=== PATIENT | female | born 1960 | race Caucasian/White ===

== ENCOUNTER 2018-02-17 11:53 | Outpatient (RCR) | payer MEDICARE, SELFPAY ==
--- NOTE | 2018-02-17 16:25 | PT.OIE ---
Current Diagnoses Pain in left shoulder (02/17/18) Past Surgical History History of spinal fusion Physical Therapy Initial Evaluation PT-OP-A Visit Information Start: 02/17/18 10:44 Freq: Status: Active Protocol: Activity Type Activity Date Activity User E-Sign Co-Sign Detail Recorded Client Recorded Date Recorded By Document 02/17/18 12:15 [facility] [id number] 02/17/18 16:24 [facility] 02/17/18 12:15 Out-Patient Physical Therapy Visit Information [Visit Information] -Visit Type Initial Evaulation -Visit Start Time 12:15 -Visit Stop Time 13:00 -Total Visit Minutes 45 [Evaluation Information] -Evaluation Date 02/17/18 PT-OP-B Current Condition Start: 02/17/18 10:44 Freq: Status: Active Protocol: Activity Type Activity Date Activity User E-Sign Co-Sign Detail Recorded Client Recorded Date Recorded By Document 02/17/18 12:15 [place] [id number] 02/17/18 16:24 [facility] 02/17/18 12:15 Current Condition [History of Current Condition] -Prior Treatments and Tests 2 cervical surgeries & PT for neck -Future Testing and Treatments Planned Cervical sx planned for April 12, 2018 PT-OP-C Subjective Start: 02/17/18 10:44 Freq: Status: Active Protocol: Activity Type Activity Date Activity User E-Sign Co-Sign Detail Recorded Client Recorded Date Recorded By Document 02/17/18 12:15 [facility] [id number] 02/17/18 16:24 [facility] 02/17/18 12:15 OP-PT Subjective [Patient Comments] -Patient Comments Pt wants HEP for stretching shoulder region to perform at home. Patient Questionnaires [Quick Dash- Upper Extremity] -Quick Dash UE Score 36.36 -Quick Dash UE Impairment 20 to 39% Impaired (Score 20-39) OP-PT Pain Assessment [Pain Assessment Grid] -Paper Pain Assessment Grid Completed Yes [Location] Left Posterior Lateral Neck -Pain Location Details along UT mm -Intensity 6 -Scale Used Numeric (1 - 10 ) -Description Aching -Frequency Constant -Pain Aggravating Factors Lifting -Other Pain Aggravating Factors not doing exercises -Pain Alleviating Factors Cold Medication Exercise -Patient Stated Pain Goal Have own HEP for stretching PT-OP-J Posture/Palpation/Skin Start: 02/17/18 10:44 Freq: Status: Active Protocol: Activity Type Activity Date Activity User E-Sign Co-Sign Detail Recorded Client Recorded Date Recorded By Document 02/17/18 12:15 [facility] [id number] 02/17/18 16:24 [facility] 02/17/18 12:15 Palpation Assessment [Location] One -Palpation Location UT, LS & cervical paraspinals -Palpation Findings Soft Tissue Tightness Tenderness PT-OP-K Range of Motion Start: 02/17/18 10:44 Freq: Status: Active Protocol: Activity Type Activity Date Activity User E-Sign Co-Sign Detail Recorded Client Recorded Date Recorded By Document 02/17/18 11:22 [facility] [id number] 02/17/18 12:55 [facility] 02/17/18 11:22 Shoulder Goniometric Range of Motion [Shoulder] Measured in Degrees Right Active -Shoulder ROM WFL Yes -Testing Position Sitting Left Active -Testing Position Sitting -Flexion 152 -Extension 70 -Abduction 160 -External Rotation at 90 degrees 85 Abduction -Internal Rotation 90 PT-OP-L Special Tests Start: 02/17/18 10:44 Freq: Status: Active Protocol: Activity Type Activity Date Activity User E-Sign Co-Sign Detail Recorded Client Recorded Date Recorded By Document 02/17/18 12:15 [facility] [email or web address] 02/17/18 16:24 [facility] 02/17/18 12:15 Special Tests [Other Special Tests] -Special Tests speeds -, neer -, rodriguez impingement +, drop arm -, empty can +, speed -, [place] - PT-OP-M Strength Start: 02/17/18 10:44 Freq: Status: Active Protocol: Activity Type Activity Date Activity User E-Sign Co-Sign Detail Recorded Client Recorded Date Recorded By Document 02/17/18 11:22 [facility] [id number] 02/17/18 12:55 [facility] 02/17/18 11:22 Shoulder Strength [Shoulder Manual Muscle Testing] Right -Flexion 5 Normal -Extension 5 Normal -Abduction (C5) 5 Normal -External Rotation 4+ Good+ -Internal Rotation 5 Normal Left -Flexion 4+ Good+ -Extension 4+ Good+ -Abduction (C5) 4+ Good+ -External Rotation 4+ Good+ -Internal Rotation 4+ Good+ -Comments pain with abd PT-OP-Q Treatments Start: 02/17/18 10:44 Freq: Status: Active Protocol: Activity Type Activity Date Activity User E-Sign Co-Sign Detail Recorded Client Recorded Date Recorded By Document 02/17/18 12:15 [facility] [id number] 02/17/18 16:24 [facility] 02/17/18 12:15 Therapeutic Exercises [Supine Exercises] 1 -Supine Exercise Name shoulder abd -Side bilateral -Comments foucs on scapular depression [Sidelying Exercises] 1 -Sidelying Exercise Name roll & reach -Side left [Standing Exercises] 8 -Standing Exercise Name chin tuck 7 -Standing Exercise Name scalene stretch -Side left 6 -Standing Exercise Name UT stretch -Side left 5 -Standing Exercise Name LS stretch -Side left 4 -Standing Exercise Name rows -Side bilateral -Resistance lvl 1 then 3 3 -Standing Exercise Name ER -Side bilateral -Resistance lvl 1 2 -Standing Exercise Name wall posture -Side bilateral 1 -Standing Exercise Name pec stretch -Side bilateral Therapeutic Activity [Therapeutic Activity] 1 -Name neck neutral posture & how to set up screens PT-OP-T Assessment and Plan Start: 02/17/18 10:44 Freq: Status: Active Protocol: Activity Type Activity Date Activity User E-Sign Co-Sign Detail Recorded Client Recorded Date Recorded By Document 02/17/18 12:15 [facility] [email or web address] 02/17/18 16:24 [facility] 02/17/18 12:15 Physical Therapy Assessment [Rehab Potential] -Rehabilitation Potential Good [Evaluation Complexity] -Number of Personal Factors/ 3 or More Comorbidities -Number of Body Systems Impaired 4 or More -Clinical Presentation at Evaluation Stable [Impairments] -Impairments Pain Posture ROM Strength [Goals] One -Impairment pain in UT region -Short Term Goal (STG) Pt will be indep with home stretching program & strengthening. -STG Duration achieved today 02/17/18 [Progress Towards Goals] -Progress Towards Goals Goals Met Physical Therapy Plan [Frequency and Duration] -Frequency of Treatment D/C today -Duration of Treatment 1 day -Plan of Care Start Date 02/17/18 -Plan of Care End Date 02/17/18 [Therapeutic Interventions] -Therapeutic Interventions Home Exercise Program [Discharge Physical Therapy] -Discharge Reasons Goals Met -Discharge Comments Pt indep with prior HEP with cueing to adjust prior exercises & added 3 new stretches. Educated on proper posture. Provider Signature Date
--- NOTE | 2018-02-17 16:25 | PT.OPPOC ---
Current Diagnoses Pain in left shoulder (02/17/18) Plan Of Care PT-OP-T Assessment and Plan Start: 02/17/18 10:44 Freq: Status: Active Protocol: Activity Type Activity Date Activity User E-Sign Co-Sign Detail Recorded Client Recorded Date Recorded By Document 02/17/18 12:15 [facility] [email or web address] 02/17/18 16:24 [facility] 02/17/18 12:15 Physical Therapy Assessment [Rehab Potential] -Rehabilitation Potential Good [Evaluation Complexity] -Number of Personal Factors/ 3 or More Comorbidities -Number of Body Systems Impaired 4 or More -Clinical Presentation at Evaluation Stable [Impairments] -Impairments Pain Posture ROM Strength [Goals] One -Impairment pain in UT region -Short Term Goal (STG) Pt will be indep with home stretching program & strengthening. -STG Duration achieved today 02/17/18 [Progress Towards Goals] -Progress Towards Goals Goals Met Physical Therapy Plan [Frequency and Duration] -Frequency of Treatment D/C today -Duration of Treatment 1 day -Plan of Care Start Date 02/17/18 -Plan of Care End Date 02/17/18 [Therapeutic Interventions] -Therapeutic Interventions Home Exercise Program [Discharge Physical Therapy] -Discharge Reasons Goals Met -Discharge Comments Pt indep with prior HEP with cueing to adjust prior exercises & added 3 new stretches. Educated on proper posture. Plan of Care Dates Plan of Care Start Date 02/17/18 Plan of Care End Date 02/17/18 Provider Visit Care Team Role Provider Type Georgette Toussaint PA-C Family Provider Advanced Practioner Clinician Primary Care Provider Specialty: Medical Address: [address] [place] [address], [address] Email: [email or web address] Yury Slaughter MD Attending Provider Physician Specialty: Orthopedic Surgery Address: [address] [place] [address], [id number] Email: [email or web address] Please Sign and Return: I have reviewed this Plan of Care and certify that the skilled therapy services above are required to meet the patient???s needs. Physician Signature Date Printed Name and Credentials
== END 2018-02-18 10:49 ==
LOC: PHYS 11:53
PROVIDERS: Family Provider Physician Assistant; PCP Physician Assistant; Visit Provider Orthopaedic Surgery
DX: M25.512 Pain in left shoulder (principal)
CPT/HCPCS: 97110; 97161

== ENCOUNTER → 2018-06-12 09:26 | Outpatient (CLI) | payer MEDICARE, SELFPAY ==
[2018-06-12 11:00] LABS: Alanine Aminotransferase 35 IU/L (9-52); Albumin 4.7 g/dL (3.5-5.0); Albumin Globulin Ratio 1.4 (1.0-2.8); Alkaline Phosphatase 136 U/L (38-126); Aspartate Aminotransferase 33 IU/L (14-36); Bilirubin Total 0.4 mg/dL (0.2-1.3); Blood Urea Nitrogen 14 mg/dL (7-17); Calcium 10.2 mg/dL (8.4-10.2); Carbon Dioxide 34 mmol/L (22-32); Chloride 104 mmol/L (98-107); Cholesterol 164 mg/dL (140-199); Estimated Glomerular Filt Rate > 60.0 mL/min (>60); Globulin 3.4 g/dL (1.7-4.1); Glucose 88 mg/dL (70-100); HDL Cholesterol 43 mg/dL (40-60); HEMOLYSIS < 15 (0-50); LDL Cholesterol Calculated 101 mg/dL (<100); Sodium 148 mmol/L (137-145); Total Protein 8.1 g/dL (6.3-8.2); Triglycerides 100 mg/dL (35-150)
[2018-06-12 11:30] LABS: Thyroid Stimulating Hormone 1.63 uIU/mL (0.47-4.68)
== END ==
PROVIDERS: Family Provider Physician Assistant; PCP Physician Assistant; Visit Provider Physician Assistant
DX: I10 Essential (primary) hypertension (principal); E78.2 Mixed hyperlipidemia; E03.9 Hypothyroidism, unspecified
CPT/HCPCS: 36415; 80053; 80061; 84443

== ENCOUNTER → 2018-09-01 12:00 | Outpatient (CLI) | payer MEDICARE, SELFPAY ==
[2018-09-01 12:34] LABS: Alkaline Phosphatase 140 U/L (38-126); Sodium 142 mmol/L (137-145)
== END ==
PROVIDERS: PCP Physician Assistant; Visit Provider Physician Assistant
DX: E87.0 Hyperosmolality and hypernatremia (principal); R74.8 Abnormal levels of other serum enzymes
CPT/HCPCS: 36415; 84075; 84295

== ENCOUNTER → 2018-12-01 10:54 | Outpatient (CLI) | payer MEDICARE, SELFPAY ==
[2018-12-01 12:47] LABS: Alkaline Phosphatase 141 U/L (38-126)
== END ==
PROVIDERS: PCP Physician Assistant; Visit Provider Physician Assistant
DX: E87.0 Hyperosmolality and hypernatremia (principal); R74.8 Abnormal levels of other serum enzymes
CPT/HCPCS: 36415; 84075

== ENCOUNTER → 2019-01-30 10:35 | Outpatient (CLI) | payer MEDICARE, SELFPAY ==
--- NOTE | 2019-01-30 10:36 | DI.US.S_ITS ---
PROCEDURE: US PELVIC COMPLETE INDICATIONS: PMB; HISTORY OVARIAN CYST TECHNIQUE: Real-time scanning was performed of the pelvic organs, with image documentation. Additional endovaginal scanning was necessary due to incomplete visualization of the adnexal and endometrial structures by transabdominal scanning. COMPARISON: [facility], , PELVIC COMPLETE, 03/17/2017, 8:05. FINDINGS: Transabdominal scanning: Limited scanning through the kidneys shows no hydronephrosis. No pathologic free abdominal or pelvic fluid. Endovaginal scanning: Uterus: Uterus is normal in size at 4.1 x 2.1 x 3.6 cm. The endometrium measures 2.3 mm in combined thickness. Ovaries: Ovaries not identified. IMPRESSION: 1. No source for postmenopausal bleeding identified. Dictated by: Vaughn VILLELA Interpreted: Fatmata Fox MD on 01/30/2019 at 15:18 Approved by: Fatmata Fox M.D. on 01/30/2019 at 16:46
== END ==
PROVIDERS: PCP Physician Assistant; Visit Provider Physician Assistant
DX: N95.0 Postmenopausal bleeding (principal); Z87.42 Personal history of other diseases of the female genital tract
CPT/HCPCS: 76830; 76856

== ENCOUNTER → 2019-03-06 11:07 | Outpatient (CLI) | payer MEDICARE, SELFPAY ==
--- NOTE | 2019-03-06 | DI.MG.S_ITS ---
BILATERAL DIGITAL SCREENING MAMMOGRAM 3D/2D WITH CAD: 03/06/2019 CLINICAL: Routine screening. Family history of breast cancer. Comparison is made to exams dated: 02/10/2018 mammogram, 02/03/2017 mammogram, and 02/03/2016 mammogram - [facility]. There are scattered fibroglandular elements in both breasts. Current study was also evaluated with a Computer Aided Detection (CAD) system. No significant masses, calcifications, or other findings are seen in either breast. There has been no significant interval change. IMPRESSION: NEGATIVE There is no mammographic evidence of malignancy. A 1 year screening mammogram is recommended. This exam was interpreted at Station ID: [id number]. NOTE: For mammograms, a report in lay terms will be sent to the patient. Approximately 15% of breast malignancies will not be visualized mammographically. In the management of a palpable breast mass, a negative mammogram must not discourage biopsy of a clinically suspicious lesion. Electronically Signed By: Daniel perez/saw:03/06/2019 11:50:53 letter sent: Normal Exam ACR BI-RADS Category 1: Negative [id number]
== END ==
PROVIDERS: PCP Physician Assistant; Visit Provider Physician Assistant
DX: Z12.31 Encounter for screening mammogram for malignant neoplasm of breast (principal); Z80.3 Family history of malignant neoplasm of breast
CPT/HCPCS: 77063; 77067

== ENCOUNTER → 2019-05-30 09:07 | Outpatient (CLI) | payer MEDICARE, SELFPAY ==
[2019-05-30 09:51] LABS: Creatinine Urine Random 172.9 mg/dL
[2019-05-30 09:56] LABS: Microalbumi Creatinin Ratio Ur 12.7 ug/mg CR (<30); Microalbumin Urine Random 2.2 mg/dL (0-1.6)
[2019-05-30 11:31] LABS: Alanine Aminotransferase 42 IU/L (9-52); Albumin 4.4 g/dL (3.5-5.0); Albumin Globulin Ratio 1.3 (1.0-2.8); Alkaline Phosphatase 147 U/L (38-126); Aspartate Aminotransferase 34 IU/L (14-36); Bilirubin Total 0.6 mg/dL (0.2-1.3); Blood Urea Nitrogen 20 mg/dL (7-17); Calcium 9.6 mg/dL (8.4-10.2); Carbon Dioxide 27 mmol/L (22-32); Chloride 100 mmol/L (98-107); Cholesterol 160 mg/dL (140-199); Estimated Glomerular Filt Rate > 60.0 mL/min (>60); Globulin 3.5 g/dL (1.7-4.1); Glucose 96 mg/dL (70-100); HDL Cholesterol 34 mg/dL (40-60); HEMOLYSIS < 15 (0-50); LDL Cholesterol Calculated 105 mg/dL (<100); Potassium 3.5 mmol/L (3.4-5.1); Sodium 140 mmol/L (137-145); Total Protein 7.9 g/dL (6.3-8.2); Triglycerides 103 mg/dL (35-150)
== END ==
PROVIDERS: PCP Physician Assistant; Visit Provider Physician Assistant
DX: E78.2 Mixed hyperlipidemia (principal); I10 Essential (primary) hypertension
CPT/HCPCS: 36415; 80053; 80061; 82043; 82570

== ENCOUNTER → 2019-08-28 13:55 | Outpatient (CLI) | payer MEDICARE, SELFPAY ==
--- NOTE | 2019-08-28 14:08 | DI.RAD.S_ITS ---
PROCEDURE: XR KNEE LT 3V INDICATIONS: Swelling in left knee suspect ligament strain TECHNIQUE: 3 views of the knee were acquired. COMPARISON: None. FINDINGS: Bones: No fractures or dislocations. No suspicious bony lesions. No joint space narrowing. Scattered degenerative subchondral sclerosis and spurring. Soft tissues: Small joint effusion. No suspicious soft tissue calcifications. IMPRESSION: Small joint effusion. If the patient's pain or other symptoms persist, consider further evaluation with MRI Dictated by: Suman Nelson M.D. on 08/28/2019 at 15:41 Approved by: Suman Nelson M.D. on 08/28/2019 at 15:42
[2019-08-28 16:14] LABS: Thyroid Stimulating Hormone 1.28 uIU/mL (0.47-4.68)
== END ==
PROVIDERS: PCP Physician Assistant; Visit Provider Physician Assistant
DX: E03.9 Hypothyroidism, unspecified (principal); M25.562 Pain in left knee
CPT/HCPCS: 36415; 73562; 84443

== ENCOUNTER → 2019-09-12 13:54 | Outpatient (CLI) | payer MEDICARE, SELFPAY ==
--- NOTE | 2019-09-12 | DI.MRI.S_ITS ---
PROCEDURE: MR KNEE LT WO CON INDICATIONS: Unspecified internal derangement of left knee TECHNIQUE: Noncontrast sagittal PD fast spin echo and T2 fast spin echo with fat saturation, sagittal 3-D FLASH with fat saturation; coronal T1 spin echo and PD fast spin echo with fat saturation, and axial PD fast spin echo with fat saturation through the knee. COMPARISON: None. FINDINGS: Image quality: Diagnostic. Bones and joint: There is no acute fracture or dislocation. No suspicious osseous lesions are evident. There is a moderate-sized knee joint effusion without significant fluid extending into a Gonzales's cyst. Heterogeneity of the hyaline articular cartilage within the patellofemoral compartment and the medial tibiofemoral compartment is present. No large cartilaginous defects are appreciated. Cruciate ligaments: The anterior and posterior cruciate ligaments are intact. Menisci: There is increased signal identified on the periphery of the medial meniscus, which may represent normal vascular structures versus a subtle horizontal tear. Slight fraying along the free edge of the body of the medial meniscus is noted. There is increased signal evident on the periphery of the lateral meniscus without a displaced meniscal tear evident. Medial structures: The medial collateral ligament is intact. The semimembranosus tendon insertion is intact. The imaged portions of the pes anserinus tendons are unremarkable. No significant fluid is contained within the pes anserinus bursa. Lateral structures: The popliteal tendon is mildly edematous and thickened. The lateral collateral ligament proper (fibular collateral ligament) and the proximal tibiofibular ligaments are intact. The distal aspect of the biceps femoris tendon and the iliotibial band are intact. Anterior structures: The quadriceps and patellar tendons are intact. There is no significant edema in the infrapatellar fat pad. IMPRESSION: 1. Questionable nondisplaced subtle horizontal tears versus normal vascular structures along the periphery of both menisci. No articular surface involvement. 2. Mild proximal popliteal tendinopathy. 3. Moderate-sized knee joint effusion. 4. Early chondromalacia the knee. Dictated by: Héctor Mauricio M.D. on 09/12/2019 at 15:08 Approved by: Héctor Mauricio M.D. on 09/12/2019 at 15:13
== END ==
PROVIDERS: PCP Physician Assistant; Visit Provider Orthopaedic Surgery
DX: M23.92 Unspecified internal derangement of left knee (principal); M94.262 Chondromalacia, left knee; M25.462 Effusion, left knee; M67.962 Unspecified disorder of synovium and tendon, left lower leg
CPT/HCPCS: 73721

== ENCOUNTER 2019-12-07 12:45 | Outpatient (RCR) | payer MEDICARE, SELFPAY ==
--- NOTE | 2019-11-05 14:30 | PT.OIE ---
Current Diagnoses Unilateral primary osteoarthritis, left knee (11/05/19) Other specified joint disorders, left knee (11/05/19) Muscle weakness (generalized) (11/05/19) Other reduced mobility (11/05/19) Past Medical History (Last Updated 03/21/18 @ 11:55 by Michelle Ruiz LPN) Acquired hypothyroidism (Chronic 05/24/13) Allergic rhinitis (Chronic Unknown) Anxiety (Chronic Unknown) Arthritis (Acute) Chronic headaches (Acute) Chronic pain syndrome (Chronic 02/05/11) Chronic pain syndrome (Chronic Unknown) Depression (Chronic Unknown) Diverticulosis of colon (Chronic 09/20/17) Essential hypertension (Chronic 01/20/17) Hepatitis (Acute) History of cervical spinal arthrodesis (Chronic) History of stroke (Resolved) HTN (hypertension) (Acute) Hyperlipemia (Chronic Unknown) Hypertension (Chronic Unknown) Hypothyroidism (Chronic Unknown) Mixed hyperlipidemia (Chronic 01/14/12) Neck pain (Acute) Osteopenia (Chronic 01/2017) Posttraumatic stress disorder (Chronic) Past Surgical History History of spinal fusion Visit Care Team Role Provider Type Georgette Toussaint PA-C Primary Care Provider Advanced Artificial Foliage Arranger Specialty: Medical Address: [address] [place] [address], [address], [facility] Email: [email or web address] Saulo Byers MD Attending Provider Physician Specialty: Orthopedic Surgery Address: [address] [place] [address], [facility] Email: [email or web address] Physical Therapy Initial Evaluation PT-OP-A Visit Information Start: 11/02/19 16:00 Freq: Status: Active Protocol: Document 11/05/19 10:31 LRN (Rec: 11/05/19 11:21 LRN [id number]) Out-Patient Physical Therapy Visit Information Visit Information Visit Type Initial Evaluation Visit Start Time 10:31 Visit Stop Time 11:21 Total Visit Minutes 48 Visit Number 1 Number of MANAGER UNIX Visits 0 Evaluation Information Evaluation Date 11/05/19 Precautions Precautions Neck surgery 2006, 2009, 2018. Still recovering from 2018 surgery. Stroke 04/2007 Hx of L shoulder, neck & back pain. Controlled High blood pressure & depression. PT-OP-B Current Condition Start: 11/02/19 16:00 Freq: Status: Active Protocol: Document 11/05/19 10:31 LRN (Rec: 11/05/19 11:21 LRN [id number]) Current Condition History of Current Condition Onset Date 3 months ago Current Complaints Diffuse, constant L knee pain. History of Current Condition Strained L knee on the treadmill. Belt on the treadmill kept moving right, so while she was walking she was pushing the belt to the left with her L LE. After walking 20 minutes she had so much pain she states she couldn't walk. She has been told she has an inflammed tendon, arthritis, and possibly a tiny tear in her L meniscus laterally. She was told to stay off of her feet so she reports being bedridden for 2 months. She can now stand on her feet. She was given a cortisone injection to L knee 3 weeks ago and found it helpful to relieve the pain . She is seeing SARAH Arriola next week. Prior Treatments and Tests X-rays MRI Medication for swelling, and taking an anti-inflammatory med. Future Testing and Treatments Planned Cortisone injection. Treatment Goals Patient/Caregiver Goals Pt goal is to relieve the pain and get back on the treadmill . Wants to get moving. Be able to sleep at night. Prior Functional Status Baseline Function- ADL's Independent Baseline Function- Mobility Independent Baseline Function- Gait Normal Baseline Function- Work/School Not working, on disability. Baseline Function- Other Insominia problem. Takes medications. Sleeps ~ 6hrs, tossing & turning. Current Functional Impairments (Reported) Functional Limitations- ADL's Severe limitation with weight bearing on the L LE, not standing on it at all due to pain. Functional Limitations- Mobility/Gait Not able to walk for exercise due to L knee pain. Functional Limitations- Work/School No change. Functional Limitations- Recreation/ Unable to walk for exercise. Hobbies Functional Limitations- Other Sleeps ~6 hrs, but sleep is more turbulent. Personal Factors Other Personal Factors That May Effect Hx of L shoulder, neck and Therapy/Recovery back pain. Controlled High blood pressure & depression. Hepatitis C & on chemotherapy for 1 yr and had a stoke 2006. Neck surgery 2006, 2009, 2018. Still recovering from 2018 surgery. Pain and weakness in L shoulder. Pt not working, on disability. PT-OP-C Subjective Start: 11/02/19 16:00 Freq: Status: Active Protocol: Document 11/05/19 10:31 LRN (Rec: 11/05/19 11:21 LRN [id number]) OP-PT Subjective Patient Comments Patient Comments Has an diffuse ache around the L knee walking. Hurts to bend the knee and feels swollen. Patient Questionnaires Lower Extremity Functional Scale LEFS Score 27 LEFS Impairment 60 to 79% Impaired (Score 17- 31) OP-PT Pain Assessment Pain Assessment Grid Paper Pain Assessment Grid Completed Yes Location Bilateral Back Pain Location Details Bilateral low back, reported L >R Intensity 7 Scale Used Numeric (1 - 10) L knee Pain Location Details L knee, diffusely around the knee joint. Intensity 7 Scale Used Numeric (1 - 10) Description Aching Frequency Constant Pain Aggravating Factors Position,Changing Position, Activity,Exercise,Standing, Sitting,Walking,Stair Climbing ,Bending Pain Alleviating Factors Medication,Inactivity Other Pain Alleviating Factors Lies completely flat with a pillow under the knees. Left Posterior Lateral Neck Pain Location Details L side of neck & shoulder Intensity 7 Scale Used Numeric (1 - 10) PT-OP-D Balance Start: 11/02/19 16:00 Freq: Status: Active Protocol: Document 11/05/19 10:31 LRN (Rec: 11/05/19 16:35 LRN [id number]) Balance Tests Single Limb Standing Single Limb- Right 12 Single Limb- Left 10 PT-OP-H Neuro Start: 11/02/19 16:00 Freq: Status: Active Protocol: Document 11/05/19 10:31 LRN (Rec: 11/05/19 11:21 LRN [id number]) Sensation Evaluation Gross Sensation Gross Sensation WNL Deep Tendon Reflex & Clonus Assessment Deep Tendon Reflex Bilateral Achilles Deep Tendon Reflex 3+ Normal But Brisk Bilateral Patellar Deep Tendon Reflex 4+ Brisk PT-OP-J Posture/Palpation/Skin Start: 11/02/19 16:00 Freq: Status: Active Protocol: Document 11/05/19 10:31 LRN (Rec: 11/05/19 16:35 LRN [id number]) Posture Evaluation Position Standing Evaluation View all positions Head/C-Spine Posture Forward Head L-Spine Posture Increased Lordosis Shoulder Posture (L) Elevated Pelvis Posture Anteriorly Tilted Ankle/Foot Posture (L) Calcaneal Eversion,(R) Calcaneal Eversion,(L) Calcaneal Inversion,(R) Forefoot Abducted Foot Arch (L) High Arch,(R) High Arch,(L ) Medium Arch,(R) Medium Arch Comments Posture Comments Pt stands with wide stance of ~12 apart. Palpation Assessment Location L patella Palpation Location Generally at L patella Palpation Findings Soft Tissue Tightness, Tenderness One Palpation Location L Biceps Femoris tendon at posterolateral knee joint. Palpation Findings Tenderness PT-OP-K Range of Motion Start: 11/02/19 16:00 Freq: Status: Active Protocol: Document 11/05/19 10:31 LRN (Rec: 11/05/19 16:35 LRN [id number]) Hip Goniometric Range of Motion Hip Left Passive Hip ROM WFL No Testing Position Supine Straight Leg Raise 80 Abduction 30 Internal Rotation 30 External Rotation 90 Right Passive Hip ROM WFL Yes Testing Position Supine Straight Leg Raise 95 Abduction 35 Internal Rotation 50 External Rotation 87 Knee Goniometric Range of Motion Knee Left Knee ROM WFL No Patient Position Supine Flexion Active (degrees) 125 Extension Active (degrees) 0 Right Knee ROM WFL Yes Patient Position Supine Flexion Active (degrees) 130 Extension Active (degrees) 0 Ankle and Foot Goniometric Range of Motion Ankle and Foot Right Active Ankle/Foot ROM WFL Yes Left Active Ankle/Foot ROM WFL Yes PT-OP-M Strength Start: 11/02/19 16:00 Freq: Status: Active Protocol: Document 11/05/19 10:31 LRN (Rec: 11/05/19 16:35 LRN [id number]) Knee Strength Knee Manual Muscle Testing Right Flexion (S2) 5 Normal Extension (L3) 5 Normal Left Flexion (S2) 4+ Good+ Extension (L3) 4+ Good+ Ankle/Foot Strength Ankle and Foot Manual Muscle Testing Right Reason Not Measured WFL Left Reason Not Measured WFL PT-OP-Q Treatments Start: 11/02/19 16:00 Freq: Status: Active Protocol: Document 11/05/19 10:31 LRN (Rec: 11/05/19 16:35 LRN [id number]) Self-Care/Home Management Treatment Education Patient Education Home Exercise Program Other Education Educated pt in RICE treatment: Rest when painful and to apply cryotherapy with wrap and elevate L LE. Discussed Fig 8 wrap, but pt noted she wraps her L knee with ice using a towel. Recommended pt apply ice for only 10-15'. Recommended pt stop icing for 30' at a time. Activities Self-Care/Home Management Activities I/S pt in stretch to L Psoas/ Quadriceps in supine with leg off plinth and knee flexed. PT-OP-T Assessment and Plan Start: 11/02/19 16:00 Freq: Status: Active Protocol: Document 11/05/19 10:31 LRN (Rec: 11/05/19 11:21 LRN [id number]) Physical Therapy Assessment Rehab Potential Rehabilitation Potential Good Evaluation Complexity Number of Personal Factors/Comorbidities 3 or More Number of Body Systems Impaired 4 or More Clinical Presentation at Evaluation Stable Impairments Impairments Activity Tolerance,Balance, Edema,Functional Mobility,Gait ,Pain,ROM,Strength Goals Four Impairment Constant L knee pn causing turbulent sleep and hindering ability to sleep. Mcfp Goal (LTG) Be able to sleep at night at prior level of function (~6hrs with tossing and turning). LTG Duration 12/17/19 Three Impairment L knee pain limiting ability to walk for exercise. Short Term Goal (STG) Pt will be able to walk on TM 10 minutes without pain. STG Duration 11/26/19 Mergers And Acquisitions Manager Goal (LTG) Pt will be able to improve SLS balance (@ least 12 sec's on left) for return to walking for exercise without pain. LTG Duration 12/17/19 Two Impairment Instability of L knee due to decreased L knee strength Short Term Goal (STG) Improve L knee strength from 4 /5 to 5/5 (flex 4/5, ext 5/5). STG Duration 12/03/19 Mcfp Goal (LTG) Improve L knee strength with reduction in pain with gait to no greater than 1/10. LTG Duration 12/17/19 One Impairment Pt lacks independent self care HEP. Mergers And Acquisitions Manager Goal (LTG) Pt will be independent in a self care HEP. LTG Duration 12/17/19 Assessment Summary Assessment Pt presents with a soft tissue dysfunction of the L knee with visible swelling at the knee, decreased mobility of the L hip hip and knee, and possible lateral knee ligamentous strain. Assessment of meniscus was held due to already positive indication (per pt) that a meniscus injury may be possible. She also demonstrates mild weakness of the L knee and decreased activity tolerance due to diffuse pain around the knee. She is also limited in L patellar mobility and decreased single leg balance that although does not appear to effect her gait mechanics, appears to affect her tolerance to gait and activity . Physical Therapy Plan Frequency and Duration Frequency of Treatment 2x/Week Plan of Care Start Date 11/05/19 Plan of Care End Date 12/17/19 Therapeutic Interventions Therapeutic Interventions Aquatic Therapy,Balance Training,Home Exercise Program ,Joint Mobilizations,Manual Therapy,Neuromuscular Re- education,Patient/Caregiver Education,Self-Care/Home Management,Soft Tissue Mobilization,Taping, Therapeutic Exercises Modalities Cold Pack/Ice Massage,Electric Stimulation,Hot Packs, Iontophoresis,Ultrasound Other Therapeutic Interventions Iontophoresis with 4mg/mL of Dexamethasone w/Sodium Phosphate. Next Visit Focus/Plan Next Note Type Treatment Note Next Visit Plan Ex bike (upright or recumbent) at low resistance (rpm 70 or higher), f/b L knee ROM and knee strengthening. Assess hip strength. JMT patella & STM as needed to TFL & Hamstrings. Start HEP: Hamstring, Lateral hip stretch . End Modalities (US, ice/ IFES). Discuss possible aquatic therapy.
--- NOTE | 2019-11-05 14:30 | PT.OPPOC ---
Physical, Occupational & Speech Therapy At [facility] Current Diagnoses Unilateral primary osteoarthritis, left knee (11/05/19) Other specified joint disorders, left knee (11/05/19) Muscle weakness (generalized) (11/05/19) Other reduced mobility (11/05/19) Visit Care Team Role Provider Type Georgette Toussaint PA-C Primary Care Provider Advanced Freezer Machine Operator Specialty: Medical Address: [address] [place] [address], [address], [address] Email: [email or web address] Saulo Byers MD Attending Provider Physician Specialty: Orthopedic Surgery Address: [address] [place] [address], [place], [address] Email: [email or web address] Plan Of Care PT-OP-T Assessment and Plan Start: 11/02/19 16:00 Freq: Status: Active Protocol: Document 11/05/19 10:31 LRN (Rec: 11/05/19 11:21 LRN [id number]) Physical Therapy Assessment Rehab Potential Rehabilitation Potential Good Evaluation Complexity Number of Personal Factors/Comorbidities 3 or More Number of Body Systems Impaired 4 or More Clinical Presentation at Evaluation Stable Impairments Impairments Activity Tolerance,Balance, Edema,Functional Mobility,Gait ,Pain,ROM,Strength Goals Four Impairment Constant L knee pn causing turbulent sleep and hindering ability to sleep. Cable Spooler Goal (LTG) Be able to sleep at night at prior level of function (~6hrs with tossing and turning). LTG Duration 12/17/19 Three Impairment L knee pain limiting ability to walk for exercise. Short Term Goal (STG) Pt will be able to walk on TM 10 minutes without pain. STG Duration 11/26/19 Intermediate Goal (LTG) Pt will be able to improve SLS balance (@ least 12 sec's on left) for return to walking for exercise without pain. LTG Duration 12/17/19 Two Impairment Instability of L knee due to decreased L knee strength Short Term Goal (STG) Improve L knee strength from 4 /5 to 5/5 (flex 4/5, ext 5/5). STG Duration 12/03/19 Cable Spooler Goal (LTG) Improve L knee strength with reduction in pain with gait to no greater than 1/10. LTG Duration 12/17/19 One Impairment Pt lacks independent self care HEP. Cable Spooler Goal (LTG) Pt will be independent in a self care HEP. LTG Duration 12/17/19 Assessment Summary Assessment Pt presents with a soft tissue dysfunction of the L knee with visible swelling at the knee, decreased mobility of the L hip hip and knee, and possible lateral knee ligamentous strain. Assessment of meniscus was held due to already positive indication (per pt) that a meniscus injury may be possible. She also demonstrates mild weakness of the L knee and decreased activity tolerance due to diffuse pain around the knee. She is also limited in L patellar mobility and decreased single leg balance that although does not appear to effect her gait mechanics, appears to affect her tolerance to gait and activity . Physical Therapy Plan Frequency and Duration Frequency of Treatment 2x/Week Plan of Care Start Date 11/05/19 Plan of Care End Date 12/17/19 Therapeutic Interventions Therapeutic Interventions Aquatic Therapy,Balance Training,Home Exercise Program ,Joint Mobilizations,Manual Therapy,Neuromuscular Re- education,Patient/Caregiver Education,Self-Care/Home Management,Soft Tissue Mobilization,Taping, Therapeutic Exercises Modalities Cold Pack/Ice Massage,Electric Stimulation,Hot Packs, Iontophoresis,Ultrasound Other Therapeutic Interventions Iontophoresis with 4mg/mL of Dexamethasone w/Sodium Phosphate. Next Visit Focus/Plan Next Note Type Treatment Note Next Visit Plan Ex bike (upright or recumbent) at low resistance (rpm 70 or higher), f/b L knee ROM and knee strengthening. Assess hip strength. JMT patella & STM as needed to TFL & Hamstrings. Start HEP: Hamstring, Lateral hip stretch . End Modalities (US, ice/ IFES). Discuss possible aquatic therapy. Plan of Care Dates Plan of Care Start Date 11/05/19 Plan of Care End Date 12/17/19 Electronically Signed by: Janett Luis, PT 11/08/19 0620 Please Sign and Return: I have reviewed this Plan of Care and certify that the skilled therapy services above are required to meet the patient?s needs. Physician Signature Date Printed Name and Credentials Clinical Instructor Signature Printed Name and Credentials
--- NOTE | 2019-11-05 16:49 | PT.OIE ---
Current Diagnoses Unilateral primary osteoarthritis, left knee (11/05/19) Other specified joint disorders, left knee (11/05/19) Muscle weakness (generalized) (11/05/19) Other reduced mobility (11/05/19) Past Medical History (Last Updated 03/21/18 @ 11:55 by Michelle Ruiz LPN) Acquired hypothyroidism (Chronic 05/24/13) Allergic rhinitis (Chronic Unknown) Anxiety (Chronic Unknown) Arthritis (Acute) Chronic headaches (Acute) Chronic pain syndrome (Chronic 02/05/11) Chronic pain syndrome (Chronic Unknown) Depression (Chronic Unknown) Diverticulosis of colon (Chronic 09/20/17) Essential hypertension (Chronic 01/20/17) Hepatitis (Acute) History of cervical spinal arthrodesis (Chronic) History of stroke (Resolved) HTN (hypertension) (Acute) Hyperlipemia (Chronic Unknown) Hypertension (Chronic Unknown) Hypothyroidism (Chronic Unknown) Mixed hyperlipidemia (Chronic 01/14/12) Neck pain (Acute) Osteopenia (Chronic 01/2017) Posttraumatic stress disorder (Chronic) Past Surgical History History of spinal fusion Visit Care Team Role Provider Type Georgette Toussaint PA-C Primary Care Provider Advanced Phlebotomy Manager Specialty: Medical Address: [address] [place] [address], [address], [facility] Email: [email or web address] Saulo Byers MD Attending Provider Physician Specialty: Orthopedic Surgery Address: [address] [place] [address], [facility] Email: [email or web address] Physical Therapy Initial Evaluation PT-OP-A Visit Information Start: 11/02/19 16:00 Freq: Status: Active Protocol: Document 11/05/19 10:33 LRN (Rec: 11/05/19 11:21 LRN [id number]) Out-Patient Physical Therapy Visit Information Visit Information Visit Type Initial Evaluation Visit Start Time 10:31 Visit Stop Time 11:21 Total Visit Minutes 48 Visit Number 1 Number of DRIER TAKE OFF TENDER Visits 0 Evaluation Information Evaluation Date 11/05/19 Precautions Precautions Neck surgery 2006, 2009, 2018. Still recovering from 2018 surgery. Stroke 04/2007 Hx of L shoulder, neck & back pain. Controlled High blood pressure & depression. PT-OP-B Current Condition Start: 11/02/19 16:00 Freq: Status: Active Protocol: Document 11/05/19 10:33 LRN (Rec: 11/05/19 11:21 LRN [id number]) Current Condition History of Current Condition Onset Date 3 months ago Current Complaints Diffuse, constant L knee pain. History of Current Condition Strained L knee on the treadmill. Belt on the treadmill kept moving right, so while she was walking she was pushing the belt to the left with her L LE. After walking 20 minutes she had so much pain she states she couldn't walk. She has been told she has an inflammed tendon, arthritis, and possibly a tiny tear in her L meniscus laterally. She was told to stay off of her feet so she reports being bedridden for 2 months. She can now stand on her feet. She was given a cortisone injection to L knee 3 weeks ago and found it helpful to relieve the pain . She is seeing SARAH Arriola next week. Prior Treatments and Tests X-rays MRI Medication for swelling, and taking an anti-inflammatory med. Future Testing and Treatments Planned Cortisone injection. Treatment Goals Patient/Caregiver Goals Pt goal is to relieve the pain and get back on the treadmill . Wants to get moving. Be able to sleep at night. Prior Functional Status Baseline Function- ADL's Independent Baseline Function- Mobility Independent Baseline Function- Gait Normal Baseline Function- Work/School Not working, on disability. Baseline Function- Other Insominia problem. Takes medications. Sleeps ~ 6hrs, tossing & turning. Current Functional Impairments (Reported) Functional Limitations- ADL's Severe limitation with weight bearing on the L LE, not standing on it at all due to pain. Functional Limitations- Mobility/Gait Not able to walk for exercise due to L knee pain. Functional Limitations- Work/School No change. Functional Limitations- Recreation/ Unable to walk for exercise. Hobbies Functional Limitations- Other Sleeps ~6 hrs, but sleep is more turbulent. Personal Factors Other Personal Factors That May Effect Hx of L shoulder, neck and Therapy/Recovery back pain. Controlled High blood pressure & depression. Hepatitis C & on chemotherapy for 1 yr and had a stoke 2006. Neck surgery 2006, 2009, 2018. Still recovering from 2018 surgery. Pain and weakness in L shoulder. Pt not working, on disability. PT-OP-C Subjective Start: 11/02/19 16:00 Freq: Status: Active Protocol: Document 11/05/19 10:33 LRN (Rec: 11/05/19 11:21 LRN [id number]) OP-PT Subjective Patient Comments Patient Comments Has an diffuse ache around the L knee walking. Hurts to bend the knee and feels swollen. Patient Questionnaires Lower Extremity Functional Scale LEFS Score 27 LEFS Impairment 60 to 79% Impaired (Score 17- 31) OP-PT Pain Assessment Pain Assessment Grid Paper Pain Assessment Grid Completed Yes Location Bilateral Back Pain Location Details Bilateral low back, reported L >R Intensity 7 Scale Used Numeric (1 - 10) L knee Pain Location Details L knee, diffusely around the knee joint. Intensity 7 Scale Used Numeric (1 - 10) Description Aching Frequency Constant Pain Aggravating Factors Position,Changing Position, Activity,Exercise,Standing, Sitting,Walking,Stair Climbing ,Bending Pain Alleviating Factors Medication,Inactivity Other Pain Alleviating Factors Lies completely flat with a pillow under the knees. Left Posterior Lateral Neck Pain Location Details L side of neck & shoulder Intensity 7 Scale Used Numeric (1 - 10) PT-OP-D Balance Start: 11/02/19 16:00 Freq: Status: Active Protocol: Document 11/05/19 10:33 LRN (Rec: 11/05/19 16:35 LRN [id number]) Balance Tests Single Limb Standing Single Limb- Right 12 Single Limb- Left 10 PT-OP-H Neuro Start: 11/02/19 16:00 Freq: Status: Active Protocol: Document 11/05/19 10:33 LRN (Rec: 11/05/19 11:21 LRN [id number]) Sensation Evaluation Gross Sensation Gross Sensation WNL Deep Tendon Reflex & Clonus Assessment Deep Tendon Reflex Bilateral Achilles Deep Tendon Reflex 3+ Normal But Brisk Bilateral Patellar Deep Tendon Reflex 4+ Brisk PT-OP-J Posture/Palpation/Skin Start: 11/02/19 16:00 Freq: Status: Active Protocol: Document 11/05/19 10:33 LRN (Rec: 11/05/19 16:35 LRN [id number]) Posture Evaluation Position Standing Evaluation View all positions Head/C-Spine Posture Forward Head L-Spine Posture Increased Lordosis Shoulder Posture (L) Elevated Pelvis Posture Anteriorly Tilted Ankle/Foot Posture (L) Calcaneal Eversion,(R) Calcaneal Eversion,(L) Calcaneal Inversion,(R) Forefoot Abducted Foot Arch (L) High Arch,(R) High Arch,(L ) Medium Arch,(R) Medium Arch Comments Posture Comments Pt stands with wide stance of ~12 apart. Palpation Assessment Location L patella Palpation Location Generally at L patella Palpation Findings Soft Tissue Tightness, Tenderness One Palpation Location L Biceps Femoris tendon at posterolateral knee joint. Palpation Findings Tenderness PT-OP-K Range of Motion Start: 11/02/19 16:00 Freq: Status: Active Protocol: Document 11/05/19 10:33 LRN (Rec: 11/05/19 16:35 LRN [id number]) Hip Goniometric Range of Motion Hip Left Passive Hip ROM WFL No Testing Position Supine Straight Leg Raise 80 Abduction 30 Internal Rotation 30 External Rotation 90 Right Passive Hip ROM WFL Yes Testing Position Supine Straight Leg Raise 95 Abduction 35 Internal Rotation 50 External Rotation 87 Knee Goniometric Range of Motion Knee Left Knee ROM WFL No Patient Position Supine Flexion Active (degrees) 125 Extension Active (degrees) 0 Right Knee ROM WFL Yes Patient Position Supine Flexion Active (degrees) 130 Extension Active (degrees) 0 Ankle and Foot Goniometric Range of Motion Ankle and Foot Right Active Ankle/Foot ROM WFL Yes Left Active Ankle/Foot ROM WFL Yes PT-OP-M Strength Start: 11/02/19 16:00 Freq: Status: Active Protocol: Document 11/05/19 10:33 LRN (Rec: 11/05/19 16:35 LRN [id number]) Knee Strength Knee Manual Muscle Testing Right Flexion (S2) 5 Normal Extension (L3) 5 Normal Left Flexion (S2) 4+ Good+ Extension (L3) 4+ Good+ Ankle/Foot Strength Ankle and Foot Manual Muscle Testing Right Reason Not Measured WFL Left Reason Not Measured WFL PT-OP-Q Treatments Start: 11/02/19 16:00 Freq: Status: Active Protocol: Document 11/05/19 10:33 LRN (Rec: 11/05/19 16:35 LRN [id number]) Self-Care/Home Management Treatment Education Patient Education Home Exercise Program Other Education Educated pt in RICE treatment: Rest when painful and to apply cryotherapy with wrap and elevate L LE. Discussed Fig 8 wrap, but pt noted she wraps her L knee with ice using a towel. Recommended pt apply ice for only 10-15'. Recommended pt stop icing for 30' at a time. Activities Self-Care/Home Management Activities I/S pt in stretch to L Psoas/ Quadriceps in supine with leg off plinth and knee flexed. PT-OP-T Assessment and Plan Start: 11/02/19 16:00 Freq: Status: Active Protocol: Document 11/05/19 10:33 LRN (Rec: 11/05/19 11:21 LRN [id number]) Physical Therapy Assessment Rehab Potential Rehabilitation Potential Good Evaluation Complexity Number of Personal Factors/Comorbidities 3 or More Number of Body Systems Impaired 4 or More Clinical Presentation at Evaluation Stable Impairments Impairments Activity Tolerance,Balance, Edema,Functional Mobility,Gait ,Pain,ROM,Strength Goals Four Impairment Constant L knee pn causing turbulent sleep and hindering ability to sleep. Mcfp Goal (LTG) Be able to sleep at night at prior level of function (~6hrs with tossing and turning). LTG Duration 12/17/19 Three Impairment L knee pain limiting ability to walk for exercise. Short Term Goal (STG) Pt will be able to walk on TM 10 minutes without pain. STG Duration 11/26/19 Applications Administrator Goal (LTG) Pt will be able to improve SLS balance (@ least 12 sec's on left) for return to walking for exercise without pain. LTG Duration 12/17/19 Two Impairment Instability of L knee due to decreased L knee strength Short Term Goal (STG) Improve L knee strength from 4 /5 to 5/5 (flex 4/5, ext 5/5). STG Duration 12/03/19 Mcfp Goal (LTG) Improve L knee strength with reduction in pain with gait to no greater than 1/10. LTG Duration 12/17/19 One Impairment Pt lacks independent self care HEP. Applications Administrator Goal (LTG) Pt will be independent in a self care HEP. LTG Duration 12/17/19 Assessment Summary Assessment Pt presents with a soft tissue dysfunction of the L knee with visible swelling at the knee, decreased mobility of the L hip hip and knee, and possible lateral knee ligamentous strain. Assessment of meniscus was held due to already positive indication (per pt) that a meniscus injury may be possible. She also demonstrates mild weakness of the L knee and decreased activity tolerance due to diffuse pain around the knee. She is also limited in L patellar mobility and decreased single leg balance that although does not appear to effect her gait mechanics, appears to affect her tolerance to gait and activity . Physical Therapy Plan Frequency and Duration Frequency of Treatment 2x/Week Plan of Care Start Date 11/05/19 Plan of Care End Date 12/17/19 Therapeutic Interventions Therapeutic Interventions Aquatic Therapy,Balance Training,Home Exercise Program ,Joint Mobilizations,Manual Therapy,Neuromuscular Re- education,Patient/Caregiver Education,Self-Care/Home Management,Soft Tissue Mobilization,Taping, Therapeutic Exercises Modalities Cold Pack/Ice Massage,Electric Stimulation,Hot Packs, Iontophoresis,Ultrasound Other Therapeutic Interventions Iontophoresis with 4mg/mL of Dexamethasone w/Sodium Phosphate. Next Visit Focus/Plan Next Note Type Treatment Note Next Visit Plan Ex bike (upright or recumbent) at low resistance (rpm 70 or higher), f/b L knee ROM and knee strengthening. Assess hip strength. JMT patella & STM as needed to TFL & Hamstrings. Start HEP: Hamstring, Lateral hip stretch . End Modalities (US, ice/ IFES). Discuss possible aquatic therapy.
--- NOTE | 2019-11-05 16:50 | PT.OPPOC ---
Physical, Occupational & Speech Therapy At [facility] Current Diagnoses Unilateral primary osteoarthritis, left knee (11/05/19) Other specified joint disorders, left knee (11/05/19) Muscle weakness (generalized) (11/05/19) Other reduced mobility (11/05/19) Visit Care Team Role Provider Type Georgette Toussaint PA-C Primary Care Provider Advanced Steward/Stewardess Third Class Specialty: Medical Address: [address] [place] [address], [address], [address] Email: [email or web address] Saulo Byers MD Attending Provider Physician Specialty: Orthopedic Surgery Address: [address] [place] [address], [place], [address] Email: [email or web address] Plan Of Care PT-OP-T Assessment and Plan Start: 11/02/19 16:00 Freq: Status: Active Protocol: Document 11/05/19 10:33 LRN (Rec: 11/05/19 11:21 LRN [id number]) Physical Therapy Assessment Rehab Potential Rehabilitation Potential Good Evaluation Complexity Number of Personal Factors/Comorbidities 3 or More Number of Body Systems Impaired 4 or More Clinical Presentation at Evaluation Stable Impairments Impairments Activity Tolerance,Balance, Edema,Functional Mobility,Gait ,Pain,ROM,Strength Goals Four Impairment Constant L knee pn causing turbulent sleep and hindering ability to sleep. Order Planner Goal (LTG) Be able to sleep at night at prior level of function (~6hrs with tossing and turning). LTG Duration 12/17/19 Three Impairment L knee pain limiting ability to walk for exercise. Short Term Goal (STG) Pt will be able to walk on TM 10 minutes without pain. STG Duration 11/26/19 Chcf Goal (LTG) Pt will be able to improve SLS balance (@ least 12 sec's on left) for return to walking for exercise without pain. LTG Duration 12/17/19 Two Impairment Instability of L knee due to decreased L knee strength Short Term Goal (STG) Improve L knee strength from 4 /5 to 5/5 (flex 4/5, ext 5/5). STG Duration 12/03/19 Order Planner Goal (LTG) Improve L knee strength with reduction in pain with gait to no greater than 1/10. LTG Duration 12/17/19 One Impairment Pt lacks independent self care HEP. Order Planner Goal (LTG) Pt will be independent in a self care HEP. LTG Duration 12/17/19 Assessment Summary Assessment Pt presents with a soft tissue dysfunction of the L knee with visible swelling at the knee, decreased mobility of the L hip hip and knee, and possible lateral knee ligamentous strain. Assessment of meniscus was held due to already positive indication (per pt) that a meniscus injury may be possible. She also demonstrates mild weakness of the L knee and decreased activity tolerance due to diffuse pain around the knee. She is also limited in L patellar mobility and decreased single leg balance that although does not appear to effect her gait mechanics, appears to affect her tolerance to gait and activity . Physical Therapy Plan Frequency and Duration Frequency of Treatment 2x/Week Plan of Care Start Date 11/05/19 Plan of Care End Date 12/17/19 Therapeutic Interventions Therapeutic Interventions Aquatic Therapy,Balance Training,Home Exercise Program ,Joint Mobilizations,Manual Therapy,Neuromuscular Re- education,Patient/Caregiver Education,Self-Care/Home Management,Soft Tissue Mobilization,Taping, Therapeutic Exercises Modalities Cold Pack/Ice Massage,Electric Stimulation,Hot Packs, Iontophoresis,Ultrasound Other Therapeutic Interventions Iontophoresis with 4mg/mL of Dexamethasone w/Sodium Phosphate. Next Visit Focus/Plan Next Note Type Treatment Note Next Visit Plan Ex bike (upright or recumbent) at low resistance (rpm 70 or higher), f/b L knee ROM and knee strengthening. Assess hip strength. JMT patella & STM as needed to TFL & Hamstrings. Start HEP: Hamstring, Lateral hip stretch . End Modalities (US, ice/ IFES). Discuss possible aquatic therapy. Plan of Care Dates Plan of Care Start Date 11/05/19 Plan of Care End Date 12/17/19 Electronically Signed by: Janett Luis, PT 11/05/19 5192 Please Sign and Return: I have reviewed this Plan of Care and certify that the skilled therapy services above are required to meet the patient?s needs. Physician Signature Date Printed Name and Credentials Clinical Instructor Signature Printed Name and Credentials
--- NOTE | 2019-11-12 11:25 | PT.OTN ---
Current Diagnoses Unilateral primary osteoarthritis, left knee (11/12/19) Other specified joint disorders, left knee (11/12/19) Muscle weakness (generalized) (11/12/19) Other reduced mobility (11/12/19) Physical Therapy Treatment Note PT-OP-A Visit Information Start: 11/02/19 16:00 Freq: Status: Active Protocol: Document 11/12/19 10:31 LRN (Rec: 11/12/19 11:22 LRN [id number]) Out-Patient Physical Therapy Visit Information Visit Information Visit Type Treatment Note Visit Start Time 10:31 Visit Stop Time 11:21 Total Visit Minutes 50 Visit Number 2 Number of GUN PERFORATOR LOADER Visits 0 Evaluation Information Evaluation Date 11/05/19 Precautions Precautions Neck surgery 2006, 2009, 2017. Still recovering from 2018 surgery. Stroke 04/2007 Hx of L shoulder, neck & back pain. Controlled High blood pressure & depression. PT-OP-B Current Condition Start: 11/02/19 16:00 Freq: Status: Active Protocol: Document 11/05/19 10:31 LRN (Rec: 11/05/19 11:21 LRN [id number]) Current Condition History of Current Condition Onset Date 3 months ago Current Complaints Diffuse, constant L knee pain. History of Current Condition Strained L knee on the treadmill. Belt on the treadmill kept moving right, so while she was walking she was pushing the belt to the left with her L LE. After walking 20 minutes she had so much pain she states she couldn't walk. She has been told she has an inflammed tendon, arthritis, and possibly a tiny tear in her L meniscus laterally. She was told to stay off of her feet so she reports being bedridden for 2 months. She can now stand on her feet. She was given a cortisone injection to L knee 3 weeks ago and found it helpful to relieve the pain . She is seeing SARAH Arriola next week. Prior Treatments and Tests X-rays MRI Medication for swelling, and taking an anti-inflammatory med. Future Testing and Treatments Planned Cortisone injection. Treatment Goals Patient/Caregiver Goals Pt goal is to relieve the pain and get back on the treadmill . Wants to get moving. Be able to sleep at night. Prior Functional Status Baseline Function- ADL's Independent Baseline Function- Mobility Independent Baseline Function- Gait Normal Baseline Function- Work/School Not working, on disability. Baseline Function- Other Insominia problem. Takes medications. Sleeps ~ 6hrs, tossing & turning. Current Functional Impairments (Reported) Functional Limitations- ADL's Severe limitation with weight bearing on the L LE, not standing on it at all due to pain. Functional Limitations- Mobility/Gait Not able to walk for exercise due to L knee pain. Functional Limitations- Work/School No change. Functional Limitations- Recreation/ Unable to walk for exercise. Hobbies Functional Limitations- Other Sleeps ~6 hrs, but sleep is more turbulent. Personal Factors Other Personal Factors That May Effect Hx of L shoulder, neck and Therapy/Recovery back pain. Controlled High blood pressure & depression. Hepatitis C & on chemotherapy for 1 yr and had a stoke 2006. Neck surgery 2006, 2009, 2018. Still recovering from 2018 surgery. Pain and weakness in L shoulder. Pt not working, on disability. PT-OP-C Subjective Start: 11/02/19 16:00 Freq: Status: Active Protocol: Document 11/12/19 10:31 LRN (Rec: 11/12/19 11:22 LRN [id number]) OP-PT Subjective Patient Comments Patient Comments Little sore after last session but fine today. PT-OP-D Balance Start: 11/02/19 16:00 Freq: Status: Active Protocol: Document 11/05/19 10:31 LRN (Rec: 11/05/19 16:35 LRN [id number]) Balance Tests Single Limb Standing Single Limb- Right 12 Single Limb- Left 10 PT-OP-H Neuro Start: 11/02/19 16:00 Freq: Status: Active Protocol: Document 11/05/19 10:31 LRN (Rec: 11/05/19 11:21 LRN [id number]) Sensation Evaluation Gross Sensation Gross Sensation WNL Deep Tendon Reflex & Clonus Assessment Deep Tendon Reflex Bilateral Achilles Deep Tendon Reflex 3+ Normal But Brisk Bilateral Patellar Deep Tendon Reflex 4+ Brisk PT-OP-J Posture/Palpation/Skin Start: 11/02/19 16:00 Freq: Status: Active Protocol: Document 11/05/19 10:31 LRN (Rec: 11/05/19 16:35 LRN [id number]) Posture Evaluation Position Standing Evaluation View all positions Head/C-Spine Posture Forward Head L-Spine Posture Increased Lordosis Shoulder Posture (L) Elevated Pelvis Posture Anteriorly Tilted Ankle/Foot Posture (L) Calcaneal Eversion,(R) Calcaneal Eversion,(L) Calcaneal Inversion,(R) Forefoot Abducted Foot Arch (L) High Arch,(R) High Arch,(L ) Medium Arch,(R) Medium Arch Comments Posture Comments Pt stands with wide stance of ~12 apart. Palpation Assessment Location L patella Palpation Location Generally at L patella Palpation Findings Soft Tissue Tightness, Tenderness One Palpation Location L Biceps Femoris tendon at posterolateral knee joint. Palpation Findings Tenderness PT-OP-K Range of Motion Start: 11/02/19 16:00 Freq: Status: Active Protocol: Document 11/05/19 10:31 LRN (Rec: 11/05/19 16:35 LRN [id number]) Hip Goniometric Range of Motion Hip Left Passive Hip ROM WFL No Testing Position Supine Straight Leg Raise 80 Abduction 30 Internal Rotation 30 External Rotation 90 Right Passive Hip ROM WFL Yes Testing Position Supine Straight Leg Raise 95 Abduction 35 Internal Rotation 50 External Rotation 87 Knee Goniometric Range of Motion Knee Left Knee ROM WFL No Patient Position Supine Flexion Active (degrees) 125 Extension Active (degrees) 0 Right Knee ROM WFL Yes Patient Position Supine Flexion Active (degrees) 130 Extension Active (degrees) 0 Ankle and Foot Goniometric Range of Motion Ankle and Foot Right Active Ankle/Foot ROM WFL Yes Left Active Ankle/Foot ROM WFL Yes PT-OP-M Strength Start: 11/02/19 16:00 Freq: Status: Active Protocol: Document 11/05/19 10:31 LRN (Rec: 11/05/19 16:35 LRN [id number]) Knee Strength Knee Manual Muscle Testing Right Flexion (S2) 5 Normal Extension (L3) 5 Normal Left Flexion (S2) 4+ Good+ Extension (L3) 4+ Good+ Ankle/Foot Strength Ankle and Foot Manual Muscle Testing Right Reason Not Measured WFL Left Reason Not Measured WFL PT-OP-Q Treatments Start: 11/02/19 16:00 Freq: Status: Active Protocol: Document 11/12/19 10:31 LRN (Rec: 11/12/19 11:22 LRN [id number]) Cardio Equipment Recumbent Bicycle Duration (Minutes) 9 Resistance 2 Seat Position 1 Other Green backrest. Therapeutic Exercises Supine Exercises SLR Supine Exercise Name SLR @ 11 & 12 O'Clock foot position Side left Resistance 1# Reps/Minutes 1x each Sidelying Exercises Hip AD Sidelying Exercise Name Hip AD Side left Reps/Minutes 10x Hip AB Sidelying Exercise Name Hip AB Side left Reps/Minutes 10x Standing Exercises Heel raises Standing Exercise Name Heel raises off step Side bilateral Reps/Minutes 10 x 2 Ankle DF Standing Exercise Name Ankle DF Side bilateral Reps/Minutes 10 x 3 CCK Knee ext Standing Exercise Name CCK L Knee Ext Side left Equipment Used Lev 2 TB Reps/Minutes to fatigue Squat Standing Exercise Name Squat Side bilateral Equipment Used ll Bars Reps/Minutes 10x Comments I/S pt to incline back before squatting & to squat back L Hamstring Curl Standing Exercise Name L Hamstring Curl Side left Resistance 1# Reps/Minutes 10x Self-Care/Home Management Treatment Education Patient Education Home Exercise Program Activities Self-Care/Home Management Activities Issued & reviewed HEP: Lateral hip stretch. PT-OP-R Modalities Start: 11/02/19 16:00 Freq: Status: Active Protocol: Document 11/12/19 10:31 LRN (Rec: 11/12/19 11:22 LRN [id number]) Hot Pack/Cold Pack Treatment Cold Pack Location L knee Patient Position Supine Treatment Duration (minutes) 10 Comments Leg elevated PT-OP-T Assessment and Plan Start: 11/02/19 16:00 Freq: Status: Active Protocol: Document 11/12/19 10:31 LRN (Rec: 11/12/19 11:22 LRN [id number]) Physical Therapy Assessment Goals Four Impairment Constant L knee pn causing turbulent sleep and hindering ability to sleep. Correction Goal (LTG) Be able to sleep at night at prior level of function (~6hrs with tossing and turning). LTG Duration 12/17/19 Three Impairment L knee pain limiting ability to walk for exercise. Short Term Goal (STG) Pt will be able to walk on TM 10 minutes without pain. STG Duration 11/26/19 Chiropractic Practice Manager Goal (LTG) Pt will be able to improve SLS balance (@ least 12 sec's on left) for return to walking for exercise without pain. LTG Duration 12/17/19 Two Impairment Instability of L knee due to decreased L knee strength Short Term Goal (STG) Improve L knee strength from 4 /5 to 5/5 (flex 4/5, ext 5/5). STG Duration 12/03/19 Correction Goal (LTG) Improve L knee strength with reduction in pain with gait to no greater than 1/10. LTG Duration 12/17/19 One Impairment Pt lacks independent self care HEP. Correction Goal (LTG) Pt will be independent in a self care HEP. LTG Duration 12/17/19 (11/12/19: Progressing) Assessment Summary Assessment L hip strength is weak except extension is normal. Pt had pain with very shallow squat in poor form, no pain with squat backs keeping knees over ankles. Good tolerance to aerobic ex. Physical Therapy Plan Frequency and Duration Frequency of Treatment 2x/Week Plan of Care Start Date 11/05/19 Plan of Care End Date 12/17/19 Next Visit Focus/Plan Next Note Type Treatment Note Next Visit Plan Review issued HEP (lateral hip stretch) and initiate ex & HEP for hip strengthening. Discuss possible aquatic therapy. Ex bike @ rpm 70 or higher (upright or recumbent), f/b L knee ROM and knee strengthening. STM as needed to TFL & Hamstrings. Progress towards open chain 0-30 and 60-90 deg's range. Modalities (US, ice/IFES) as needed.
--- NOTE | 2019-11-12 11:34 | PT.OTN ---
Current Diagnoses Unilateral primary osteoarthritis, left knee (11/12/19) Other specified joint disorders, left knee (11/12/19) Muscle weakness (generalized) (11/12/19) Other reduced mobility (11/12/19) Physical Therapy Treatment Note PT-OP-A Visit Information Start: 11/02/19 16:00 Freq: Status: Active Protocol: Document 11/12/19 10:31 LRN (Rec: 11/12/19 11:22 LRN [id number]) Out-Patient Physical Therapy Visit Information Visit Information Visit Type Treatment Note Visit Start Time 10:31 Visit Stop Time 11:21 Total Visit Minutes 50 Visit Number 2 Number of ENROLLMENT PROCESSOR Visits 0 Evaluation Information Evaluation Date 11/05/19 Precautions Precautions Neck surgery 2006, 2009, 2017. Still recovering from 2018 surgery. Stroke 04/2007 Hx of L shoulder, neck & back pain. Controlled High blood pressure & depression. PT-OP-B Current Condition Start: 11/02/19 16:00 Freq: Status: Active Protocol: Document 11/05/19 10:31 LRN (Rec: 11/05/19 11:21 LRN [id number]) Current Condition History of Current Condition Onset Date 3 months ago Current Complaints Diffuse, constant L knee pain. History of Current Condition Strained L knee on the treadmill. Belt on the treadmill kept moving right, so while she was walking she was pushing the belt to the left with her L LE. After walking 20 minutes she had so much pain she states she couldn't walk. She has been told she has an inflammed tendon, arthritis, and possibly a tiny tear in her L meniscus laterally. She was told to stay off of her feet so she reports being bedridden for 2 months. She can now stand on her feet. She was given a cortisone injection to L knee 3 weeks ago and found it helpful to relieve the pain . She is seeing SARAH Arriola next week. Prior Treatments and Tests X-rays MRI Medication for swelling, and taking an anti-inflammatory med. Future Testing and Treatments Planned Cortisone injection. Treatment Goals Patient/Caregiver Goals Pt goal is to relieve the pain and get back on the treadmill . Wants to get moving. Be able to sleep at night. Prior Functional Status Baseline Function- ADL's Independent Baseline Function- Mobility Independent Baseline Function- Gait Normal Baseline Function- Work/School Not working, on disability. Baseline Function- Other Insominia problem. Takes medications. Sleeps ~ 6hrs, tossing & turning. Current Functional Impairments (Reported) Functional Limitations- ADL's Severe limitation with weight bearing on the L LE, not standing on it at all due to pain. Functional Limitations- Mobility/Gait Not able to walk for exercise due to L knee pain. Functional Limitations- Work/School No change. Functional Limitations- Recreation/ Unable to walk for exercise. Hobbies Functional Limitations- Other Sleeps ~6 hrs, but sleep is more turbulent. Personal Factors Other Personal Factors That May Effect Hx of L shoulder, neck and Therapy/Recovery back pain. Controlled High blood pressure & depression. Hepatitis C & on chemotherapy for 1 yr and had a stoke 2006. Neck surgery 2006, 2009, 2018. Still recovering from 2018 surgery. Pain and weakness in L shoulder. Pt not working, on disability. PT-OP-C Subjective Start: 11/02/19 16:00 Freq: Status: Active Protocol: Document 11/12/19 10:31 LRN (Rec: 11/12/19 11:22 LRN [id number]) OP-PT Subjective Patient Comments Patient Comments Little sore after last session but fine today. PT-OP-D Balance Start: 11/02/19 16:00 Freq: Status: Active Protocol: Document 11/05/19 10:31 LRN (Rec: 11/05/19 16:35 LRN [id number]) Balance Tests Single Limb Standing Single Limb- Right 12 Single Limb- Left 10 PT-OP-H Neuro Start: 11/02/19 16:00 Freq: Status: Active Protocol: Document 11/05/19 10:31 LRN (Rec: 11/05/19 11:21 LRN [id number]) Sensation Evaluation Gross Sensation Gross Sensation WNL Deep Tendon Reflex & Clonus Assessment Deep Tendon Reflex Bilateral Achilles Deep Tendon Reflex 3+ Normal But Brisk Bilateral Patellar Deep Tendon Reflex 4+ Brisk PT-OP-J Posture/Palpation/Skin Start: 11/02/19 16:00 Freq: Status: Active Protocol: Document 11/05/19 10:31 LRN (Rec: 11/05/19 16:35 LRN [id number]) Posture Evaluation Position Standing Evaluation View all positions Head/C-Spine Posture Forward Head L-Spine Posture Increased Lordosis Shoulder Posture (L) Elevated Pelvis Posture Anteriorly Tilted Ankle/Foot Posture (L) Calcaneal Eversion,(R) Calcaneal Eversion,(L) Calcaneal Inversion,(R) Forefoot Abducted Foot Arch (L) High Arch,(R) High Arch,(L ) Medium Arch,(R) Medium Arch Comments Posture Comments Pt stands with wide stance of ~12 apart. Palpation Assessment Location L patella Palpation Location Generally at L patella Palpation Findings Soft Tissue Tightness, Tenderness One Palpation Location L Biceps Femoris tendon at posterolateral knee joint. Palpation Findings Tenderness PT-OP-K Range of Motion Start: 11/02/19 16:00 Freq: Status: Active Protocol: Document 11/05/19 10:31 LRN (Rec: 11/05/19 16:35 LRN [id number]) Hip Goniometric Range of Motion Hip Left Passive Hip ROM WFL No Testing Position Supine Straight Leg Raise 80 Abduction 30 Internal Rotation 30 External Rotation 90 Right Passive Hip ROM WFL Yes Testing Position Supine Straight Leg Raise 95 Abduction 35 Internal Rotation 50 External Rotation 87 Knee Goniometric Range of Motion Knee Left Knee ROM WFL No Patient Position Supine Flexion Active (degrees) 125 Extension Active (degrees) 0 Right Knee ROM WFL Yes Patient Position Supine Flexion Active (degrees) 130 Extension Active (degrees) 0 Ankle and Foot Goniometric Range of Motion Ankle and Foot Right Active Ankle/Foot ROM WFL Yes Left Active Ankle/Foot ROM WFL Yes PT-OP-M Strength Start: 11/02/19 16:00 Freq: Status: Active Protocol: Document 11/12/19 10:31 LRN (Rec: 11/12/19 11:34 LRN [id number]) Hip Strength Hip Manual Muscle Testing Right Comments WNL, Generally 5/5, except IR/ ER not tested. Left Flexion (L2) 3+ Fair+ Extension (S1) 5 Normal Abduction 3+ Fair+ Adduction 3- Fair- PT-OP-Q Treatments Start: 11/02/19 16:00 Freq: Status: Active Protocol: Document 11/12/19 10:31 LRN (Rec: 11/12/19 11:22 LRN [id number]) Cardio Equipment Recumbent Bicycle Duration (Minutes) 9 Resistance 2 Seat Position 1 Other Green backrest. Therapeutic Exercises Supine Exercises SLR Supine Exercise Name SLR @ 11 & 12 O'Clock foot position Side left Resistance 1# Reps/Minutes 1x each Sidelying Exercises Hip AD Sidelying Exercise Name Hip AD Side left Reps/Minutes 10x Hip AB Sidelying Exercise Name Hip AB Side left Reps/Minutes 10x Standing Exercises Heel raises Standing Exercise Name Heel raises off step Side bilateral Reps/Minutes 10 x 2 Ankle DF Standing Exercise Name Ankle DF Side bilateral Reps/Minutes 10 x 3 CCK Knee ext Standing Exercise Name CCK L Knee Ext Side left Equipment Used Lev 2 TB Reps/Minutes to fatigue Squat Standing Exercise Name Squat Side bilateral Equipment Used ll Bars Reps/Minutes 10x Comments I/S pt to incline back before squatting & to squat back L Hamstring Curl Standing Exercise Name L Hamstring Curl Side left Resistance 1# Reps/Minutes 10x Self-Care/Home Management Treatment Education Patient Education Home Exercise Program Activities Self-Care/Home Management Activities Issued & reviewed HEP: Lateral hip stretch. PT-OP-R Modalities Start: 11/02/19 16:00 Freq: Status: Active Protocol: Document 11/12/19 10:31 LRN (Rec: 11/12/19 11:22 LRN [id number]) Hot Pack/Cold Pack Treatment Cold Pack Location L knee Patient Position Supine Treatment Duration (minutes) 10 Comments Leg elevated PT-OP-T Assessment and Plan Start: 11/02/19 16:00 Freq: Status: Active Protocol: Document 11/12/19 10:31 LRN (Rec: 11/12/19 11:22 LRN [id number]) Physical Therapy Assessment Goals Four Impairment Constant L knee pn causing turbulent sleep and hindering ability to sleep. Prison Goal (LTG) Be able to sleep at night at prior level of function (~6hrs with tossing and turning). LTG Duration 12/17/19 Three Impairment L knee pain limiting ability to walk for exercise. Short Term Goal (STG) Pt will be able to walk on TM 10 minutes without pain. STG Duration 11/26/19 Prison Goal (LTG) Pt will be able to improve SLS balance (@ least 12 sec's on left) for return to walking for exercise without pain. LTG Duration 12/17/19 Two Impairment Instability of L knee due to decreased L knee strength Short Term Goal (STG) Improve L knee strength from 4 /5 to 5/5 (flex 4/5, ext 5/5). STG Duration 12/03/19 Consumer Experience Consultant Goal (LTG) Improve L knee strength with reduction in pain with gait to no greater than 1/10. LTG Duration 12/17/19 One Impairment Pt lacks independent self care HEP. Consumer Experience Consultant Goal (LTG) Pt will be independent in a self care HEP. LTG Duration 12/17/19 (11/12/19: Progressing) Assessment Summary Assessment L hip strength is weak except extension is normal. Pt had pain with very shallow squat in poor form, no pain with squat backs keeping knees over ankles. Good tolerance to aerobic ex. Physical Therapy Plan Frequency and Duration Frequency of Treatment 2x/Week Plan of Care Start Date 11/05/19 Plan of Care End Date 12/17/19 Next Visit Focus/Plan Next Note Type Treatment Note Next Visit Plan Review issued HEP (lateral hip stretch) and initiate ex & HEP for hip strengthening. Discuss possible aquatic therapy. Ex bike @ rpm 70 or higher (upright or recumbent), f/b L knee ROM and knee strengthening. STM as needed to TFL & Hamstrings. Progress towards open chain 0-30 and 60-90 deg's range. Modalities (US, ice/IFES) as needed.
--- NOTE | 2019-11-19 15:33 | PT.OTN ---
Current Diagnoses Unilateral primary osteoarthritis, left knee (11/19/19) Other specified joint disorders, left knee (11/19/19) Muscle weakness (generalized) (11/19/19) Other reduced mobility (11/19/19) Physical Therapy Treatment Note PT-OP-A Visit Information Start: 11/02/19 16:00 Freq: Status: Active Protocol: Document 11/19/19 10:33 LRN (Rec: 11/19/19 11:24 LRN [id number]) Out-Patient Physical Therapy Visit Information Visit Information Visit Type Treatment Note Visit Start Time 10:33 Visit Stop Time 11:30 Total Visit Minutes 57 Visit Number 3 Number of MARKETING EFFECTIVENESS MANAGER Visits 0 Evaluation Information Evaluation Date 11/05/19 Precautions Precautions Neck surgery 2006, 2009, 2017. Still recovering from 2018 surgery. Stroke 04/2007 Hx of L shoulder, neck & back pain. Controlled High blood pressure & depression. PT-OP-B Current Condition Start: 11/02/19 16:00 Freq: Status: Active Protocol: Document 11/05/19 10:31 LRN (Rec: 11/05/19 11:21 LRN [id number]) Current Condition History of Current Condition Onset Date 3 months ago Current Complaints Diffuse, constant L knee pain. History of Current Condition Strained L knee on the treadmill. Belt on the treadmill kept moving right, so while she was walking she was pushing the belt to the left with her L LE. After walking 20 minutes she had so much pain she states she couldn't walk. She has been told she has an inflammed tendon, arthritis, and possibly a tiny tear in her L meniscus laterally. She was told to stay off of her feet so she reports being bedridden for 2 months. She can now stand on her feet. She was given a cortisone injection to L knee 3 weeks ago and found it helpful to relieve the pain . She is seeing SARAH Arriola next week. Prior Treatments and Tests X-rays MRI Medication for swelling, and taking an anti-inflammatory med. Future Testing and Treatments Planned Cortisone injection. Treatment Goals Patient/Caregiver Goals Pt goal is to relieve the pain and get back on the treadmill . Wants to get moving. Be able to sleep at night. Prior Functional Status Baseline Function- ADL's Independent Baseline Function- Mobility Independent Baseline Function- Gait Normal Baseline Function- Work/School Not working, on disability. Baseline Function- Other Insominia problem. Takes medications. Sleeps ~ 6hrs, tossing & turning. Current Functional Impairments (Reported) Functional Limitations- ADL's Severe limitation with weight bearing on the L LE, not standing on it at all due to pain. Functional Limitations- Mobility/Gait Not able to walk for exercise due to L knee pain. Functional Limitations- Work/School No change. Functional Limitations- Recreation/ Unable to walk for exercise. Hobbies Functional Limitations- Other Sleeps ~6 hrs, but sleep is more turbulent. Personal Factors Other Personal Factors That May Effect Hx of L shoulder, neck and Therapy/Recovery back pain. Controlled High blood pressure & depression. Hepatitis C & on chemotherapy for 1 yr and had a stoke 2006. Neck surgery 2006, 2009, 2018. Still recovering from 2018 surgery. Pain and weakness in L shoulder. Pt not working, on disability. PT-OP-C Subjective Start: 11/02/19 16:00 Freq: Status: Active Protocol: Document 11/19/19 10:33 LRN (Rec: 11/19/19 11:24 LRN [id number]) OP-PT Subjective Patient Comments Patient Comments States over the weekend the L knee felt good and she walked around [employer] (flat route) without a problem, but yesterday while doing standing knee flex ex she felt a pull at the knee, and has an ache since. PT-OP-D Balance Start: 11/02/19 16:00 Freq: Status: Active Protocol: Document 11/05/19 10:31 LRN (Rec: 11/05/19 16:35 LRN [id number]) Balance Tests Single Limb Standing Single Limb- Right 12 Single Limb- Left 10 PT-OP-H Neuro Start: 11/02/19 16:00 Freq: Status: Active Protocol: Document 11/05/19 10:31 LRN (Rec: 11/05/19 11:21 LRN [id number]) Sensation Evaluation Gross Sensation Gross Sensation WNL Deep Tendon Reflex & Clonus Assessment Deep Tendon Reflex Bilateral Achilles Deep Tendon Reflex 3+ Normal But Brisk Bilateral Patellar Deep Tendon Reflex 4+ Brisk PT-OP-J Posture/Palpation/Skin Start: 11/02/19 16:00 Freq: Status: Active Protocol: Document 11/05/19 10:31 LRN (Rec: 11/05/19 16:35 LRN [id number]) Posture Evaluation Position Standing Evaluation View all positions Head/C-Spine Posture Forward Head L-Spine Posture Increased Lordosis Shoulder Posture (L) Elevated Pelvis Posture Anteriorly Tilted Ankle/Foot Posture (L) Calcaneal Eversion,(R) Calcaneal Eversion,(L) Calcaneal Inversion,(R) Forefoot Abducted Foot Arch (L) High Arch,(R) High Arch,(L ) Medium Arch,(R) Medium Arch Comments Posture Comments Pt stands with wide stance of ~12 apart. Palpation Assessment Location L patella Palpation Location Generally at L patella Palpation Findings Soft Tissue Tightness, Tenderness One Palpation Location L Biceps Femoris tendon at posterolateral knee joint. Palpation Findings Tenderness PT-OP-K Range of Motion Start: 11/02/19 16:00 Freq: Status: Active Protocol: Document 11/05/19 10:31 LRN (Rec: 11/05/19 16:35 LRN [id number]) Hip Goniometric Range of Motion Hip Left Passive Hip ROM WFL No Testing Position Supine Straight Leg Raise 80 Abduction 30 Internal Rotation 30 External Rotation 90 Right Passive Hip ROM WFL Yes Testing Position Supine Straight Leg Raise 95 Abduction 35 Internal Rotation 50 External Rotation 87 Knee Goniometric Range of Motion Knee Left Knee ROM WFL No Patient Position Supine Flexion Active (degrees) 125 Extension Active (degrees) 0 Right Knee ROM WFL Yes Patient Position Supine Flexion Active (degrees) 130 Extension Active (degrees) 0 Ankle and Foot Goniometric Range of Motion Ankle and Foot Right Active Ankle/Foot ROM WFL Yes Left Active Ankle/Foot ROM WFL Yes PT-OP-M Strength Start: 11/02/19 16:00 Freq: Status: Active Protocol: Document 11/12/19 10:31 LRN (Rec: 11/12/19 11:34 LRN [id number]) Hip Strength Hip Manual Muscle Testing Right Comments WNL, Generally 5/5, except IR/ ER not tested. Left Flexion (L2) 3+ Fair+ Extension (S1) 5 Normal Abduction 3+ Fair+ Adduction 3- Fair- PT-OP-Q Treatments Start: 11/02/19 16:00 Freq: Status: Active Protocol: Document 11/19/19 10:33 LRN (Rec: 11/19/19 11:24 LRN [id number]) Cardio Equipment Recumbent Bicycle Duration (Minutes) 9 Resistance 2 Seat Position 1 Other Green backrest. Therapeutic Exercises Supine Exercises Knee Flex Supine Exercise Name Active knee flex Side left Reps/Minutes 10x SLR Supine Exercise Name SLR @ 10 & 12 O'Clock foot position Side left Resistance 2# & 1# Reps/Minutes 8x & 10x each respectively Sidelying Exercises Hip AD Sidelying Exercise Name Hip AD Side left Reps/Minutes 10x 3 Standing Exercises Heel raises Standing Exercise Name Heel raises off step Side bilateral Reps/Minutes 10 x 2 Comments Foot @ 10 & 12, & 2 O'Clock position Ankle DF Standing Exercise Name Ankle DF Side bilateral Reps/Minutes 10 x 3 Comments Foot @ 10 & 12, & 2 O'Clock position L Hamstring Curl Standing Exercise Name L Hamstring Curl Side left Resistance 0#, 1#, 2# Reps/Minutes 10x each Self-Care/Home Management Treatment Education Patient Education Home Exercise Program Activities Self-Care/Home Management Activities Issued & reviewed HEP: Sidelie Hip AD; also AB/ Clamshell for pt to hold until next visit.. PT-OP-R Modalities Start: 11/02/19 16:00 Freq: Status: Active Protocol: Document 11/19/19 10:33 LRN (Rec: 11/19/19 11:24 LRN [id number]) Hot Pack/Cold Pack Treatment Cold Pack Location L knee Patient Position Supine Treatment Duration (minutes) 10 Comments Leg elevated Ultrasound Therapy Treatment Left Knee Treatment Duration (minutes) 8 Patient Position Supine Frequency Setting (mHz) 1 Mode Setting Pulsed Duty Cycle 50% Intensity Setting (w/cm2) 1.0 PT-OP-T Assessment and Plan Start: 11/02/19 16:00 Freq: Status: Active Protocol: Document 11/19/19 10:33 LRN (Rec: 11/19/19 11:24 LRN [id number]) Physical Therapy Assessment Goals Four Impairment Constant L knee pn causing turbulent sleep and hindering ability to sleep. Stone Setter Goal (LTG) Be able to sleep at night at prior level of function (~6hrs with tossing and turning). LTG Duration 12/17/19 Three Impairment L knee pain limiting ability to walk for exercise. Short Term Goal (STG) Pt will be able to walk on TM 10 minutes without pain. STG Duration 11/26/19 Stone Setter Goal (LTG) Pt will be able to improve SLS balance (@ least 12 sec's on left) for return to walking for exercise without pain. LTG Duration 12/17/19 Two Impairment Instability of L knee due to decreased L knee strength Short Term Goal (STG) Improve L knee strength from 4 /5 to 5/5 (flex 4/5, ext 5/5). STG Duration 12/03/19 Retirement Goal (LTG) Improve L knee strength with reduction in pain with gait to no greater than 1/10. LTG Duration 12/17/19 One Impairment Pt lacks independent self care HEP. Stone Setter Goal (LTG) Pt will be independent in a self care HEP. LTG Duration 12/17/19 (11/12/19: Progressing) Assessment Summary Assessment Pt would rather not do aquatic therapy. Poor recall of lateral hip stretch, but pt was able to perform stretch after review. Good tolerance to hip strengthening. L knee pain may be due from hitting it; otherwise will need monitoring. Physical Therapy Plan Frequency and Duration Frequency of Treatment 2x/Week Plan of Care Start Date 11/05/19 Plan of Care End Date 12/17/19 Next Visit Focus/Plan Next Note Type Treatment Note Next Visit Plan Assess response to US. Progress hip ex (hip AB/IR/ER/ ext) & HEP for hip strengthening. Ex bike @ rpm 70 or higher (recumbent), f/b L knee ROM and knee strengthening, STM to TFL/ Hamstrings as needed. Progress towards open chain 0- 30 and 60-90 deg's range.
--- NOTE | 2019-11-23 12:43 | PT.OTN ---
Current Diagnoses Unilateral primary osteoarthritis, left knee (11/23/19) Other specified joint disorders, left knee (11/23/19) Muscle weakness (generalized) (11/23/19) Other reduced mobility (11/23/19) Physical Therapy Treatment Note PT-OP-A Visit Information Start: 11/02/19 16:00 Freq: Status: Active Protocol: Document 11/23/19 11:19 LRN (Rec: 11/23/19 12:25 LRN [id number]) Out-Patient Physical Therapy Visit Information Visit Information Visit Type Treatment Note Visit Start Time 11:19 Visit Stop Time 12:17 Total Visit Minutes 58 Visit Number 4 Number of RADIO SURVEY WORKER Visits 0 Evaluation Information Evaluation Date 11/05/19 Precautions Precautions Neck surgery 2006, 2009, 2017. Still recovering from 2018 surgery. Stroke 04/2007 Hx of L shoulder, neck & back pain. Controlled High blood pressure & depression. PT-OP-B Current Condition Start: 11/02/19 16:00 Freq: Status: Active Protocol: Document 11/05/19 10:31 LRN (Rec: 11/05/19 11:21 LRN [id number]) Current Condition History of Current Condition Onset Date 3 months ago Current Complaints Diffuse, constant L knee pain. History of Current Condition Strained L knee on the treadmill. Belt on the treadmill kept moving right, so while she was walking she was pushing the belt to the left with her L LE. After walking 20 minutes she had so much pain she states she couldn't walk. She has been told she has an inflammed tendon, arthritis, and possibly a tiny tear in her L meniscus laterally. She was told to stay off of her feet so she reports being bedridden for 2 months. She can now stand on her feet. She was given a cortisone injection to L knee 3 weeks ago and found it helpful to relieve the pain . She is seeing SARAH Arriola next week. Prior Treatments and Tests X-rays MRI Medication for swelling, and taking an anti-inflammatory med. Future Testing and Treatments Planned Cortisone injection. Treatment Goals Patient/Caregiver Goals Pt goal is to relieve the pain and get back on the treadmill . Wants to get moving. Be able to sleep at night. Prior Functional Status Baseline Function- ADL's Independent Baseline Function- Mobility Independent Baseline Function- Gait Normal Baseline Function- Work/School Not working, on disability. Baseline Function- Other Insominia problem. Takes medications. Sleeps ~ 6hrs, tossing & turning. Current Functional Impairments (Reported) Functional Limitations- ADL's Severe limitation with weight bearing on the L LE, not standing on it at all due to pain. Functional Limitations- Mobility/Gait Not able to walk for exercise due to L knee pain. Functional Limitations- Work/School No change. Functional Limitations- Recreation/ Unable to walk for exercise. Hobbies Functional Limitations- Other Sleeps ~6 hrs, but sleep is more turbulent. Personal Factors Other Personal Factors That May Effect Hx of L shoulder, neck and Therapy/Recovery back pain. Controlled High blood pressure & depression. Hepatitis C & on chemotherapy for 1 yr and had a stoke 2006. Neck surgery 2006, 2009, 2018. Still recovering from 2018 surgery. Pain and weakness in L shoulder. Pt not working, on disability. PT-OP-C Subjective Start: 11/02/19 16:00 Freq: Status: Active Protocol: Document 11/23/19 11:19 LRN (Rec: 11/23/19 12:25 LRN [id number]) OP-PT Subjective Patient Comments Patient Comments Feeling better since last visit. The ache under the knee cap has gone away. She is making sure she keeps her leg elevated and doing ex's. PT-OP-D Balance Start: 11/02/19 16:00 Freq: Status: Active Protocol: Document 11/05/19 10:31 LRN (Rec: 11/05/19 16:35 LRN [id number]) Balance Tests Single Limb Standing Single Limb- Right 12 Single Limb- Left 10 PT-OP-H Neuro Start: 11/02/19 16:00 Freq: Status: Active Protocol: Document 11/05/19 10:31 LRN (Rec: 11/05/19 11:21 LRN [id number]) Sensation Evaluation Gross Sensation Gross Sensation WNL Deep Tendon Reflex & Clonus Assessment Deep Tendon Reflex Bilateral Achilles Deep Tendon Reflex 3+ Normal But Brisk Bilateral Patellar Deep Tendon Reflex 4+ Brisk PT-OP-J Posture/Palpation/Skin Start: 11/02/19 16:00 Freq: Status: Active Protocol: Document 11/05/19 10:31 LRN (Rec: 11/05/19 16:35 LRN [id number]) Posture Evaluation Position Standing Evaluation View all positions Head/C-Spine Posture Forward Head L-Spine Posture Increased Lordosis Shoulder Posture (L) Elevated Pelvis Posture Anteriorly Tilted Ankle/Foot Posture (L) Calcaneal Eversion,(R) Calcaneal Eversion,(L) Calcaneal Inversion,(R) Forefoot Abducted Foot Arch (L) High Arch,(R) High Arch,(L ) Medium Arch,(R) Medium Arch Comments Posture Comments Pt stands with wide stance of ~12 apart. Palpation Assessment Location L patella Palpation Location Generally at L patella Palpation Findings Soft Tissue Tightness, Tenderness One Palpation Location L Biceps Femoris tendon at posterolateral knee joint. Palpation Findings Tenderness PT-OP-K Range of Motion Start: 11/02/19 16:00 Freq: Status: Active Protocol: Document 11/05/19 10:31 LRN (Rec: 11/05/19 16:35 LRN [id number]) Hip Goniometric Range of Motion Hip Left Passive Hip ROM WFL No Testing Position Supine Straight Leg Raise 80 Abduction 30 Internal Rotation 30 External Rotation 90 Right Passive Hip ROM WFL Yes Testing Position Supine Straight Leg Raise 95 Abduction 35 Internal Rotation 50 External Rotation 87 Knee Goniometric Range of Motion Knee Left Knee ROM WFL No Patient Position Supine Flexion Active (degrees) 125 Extension Active (degrees) 0 Right Knee ROM WFL Yes Patient Position Supine Flexion Active (degrees) 130 Extension Active (degrees) 0 Ankle and Foot Goniometric Range of Motion Ankle and Foot Right Active Ankle/Foot ROM WFL Yes Left Active Ankle/Foot ROM WFL Yes PT-OP-M Strength Start: 11/02/19 16:00 Freq: Status: Active Protocol: Document 11/12/19 10:31 LRN (Rec: 11/12/19 11:34 LRN [id number]) Hip Strength Hip Manual Muscle Testing Right Comments WNL, Generally 5/5, except IR/ ER not tested. Left Flexion (L2) 3+ Fair+ Extension (S1) 5 Normal Abduction 3+ Fair+ Adduction 3- Fair- PT-OP-Q Treatments Start: 11/02/19 16:00 Freq: Status: Active Protocol: Document 11/23/19 11:19 LRN (Rec: 11/23/19 12:25 LRN [id number]) Cardio Equipment Recumbent Bicycle Duration (Minutes) 10 Resistance 3 Seat Position 1 Other Green backrest. Therapeutic Exercises Supine Exercises Knee Flex Supine Exercise Name Active knee flex Side left Reps/Minutes 2x SLR Supine Exercise Name SLR @ 10 & 12 O'Clock foot position Side left Resistance 2# Reps/Minutes 15 x 2 Prone Exercises Knee Flex Prone Exercise Name Knee Flex Side left Resistance Lev 2 T-Band Reps/Minutes 15 x 2 Hip Ext Prone Exercise Name Hip Ext Side left Resistance 1# Reps/Minutes 15 x 2 Sidelying Exercises Hip AD Sidelying Exercise Name Hip AD Side left Resistance 1# Reps/Minutes 15 x Hip AB Sidelying Exercise Name Hip AB Side left Resistance 1# Reps/Minutes 15 x 2 Sitting Exercises 0-30 & 90-60 deg's extension Sitting Exercise Name 0-30 & 90-60 deg's extension Side left Equipment Used Lev 4 T-Band Self-Care/Home Management Treatment Education Patient Education Home Exercise Program Activities Self-Care/Home Management Activities Attempted handout, but was unable to print; therefore I/S pt in the HEP. PT-OP-R Modalities Start: 11/02/19 16:00 Freq: Status: Active Protocol: Document 11/23/19 11:19 LRN (Rec: 11/23/19 12:25 LRN [id number]) Hot Pack/Cold Pack Treatment Cold Pack Location L knee Patient Position Supine Treatment Duration (minutes) 10 Comments Cryocuff, Leg elevated PT-OP-T Assessment and Plan Start: 11/02/19 16:00 Freq: Status: Active Protocol: Document 11/23/19 11:19 LRN (Rec: 11/23/19 12:25 LRN [id number]) Physical Therapy Assessment Goals Four Impairment Constant L knee pn causing turbulent sleep and hindering ability to sleep. Fci Goal (LTG) Be able to sleep at night at prior level of function (~6hrs with tossing and turning). LTG Duration 12/17/19 Three Impairment L knee pain limiting ability to walk for exercise. Short Term Goal (STG) Pt will be able to walk on TM 10 minutes without pain. STG Duration 11/26/19 Fci Goal (LTG) Pt will be able to improve SLS balance (@ least 12 sec's on left) for return to walking for exercise without pain. LTG Duration 12/17/19 Two Impairment Instability of L knee due to decreased L knee strength Short Term Goal (STG) Improve L knee strength from 4 /5 to 5/5 (flex 4/5, ext 5/5). STG Duration 12/03/19 Display Fabricator Goal (LTG) Improve L knee strength with reduction in pain with gait to no greater than 1/10. LTG Duration 12/17/19 One Impairment Pt lacks independent self care HEP. Fci Goal (LTG) Pt will be independent in a self care HEP. LTG Duration 12/17/19 (11/12/19: Progressing) Assessment Summary Assessment Normal L knee AROM today. Pt did not do previously issued HEP. She was able to do ex's with cuing for keeping L knee straight and for trunk to maintain neutral. Pt is very weak in trunk rotators and is not able to maintain neutral with hip ex's. Physical Therapy Plan Frequency and Duration Frequency of Treatment 2x/Week Plan of Care Start Date 11/05/19 Plan of Care End Date 12/17/19 Next Visit Focus/Plan Next Note Type Treatment Note Next Visit Plan Add trunk rot strengthening and training to maintain neutral with exercises. Progress hip ex (hip AB/IR/ER/ ext) & HEP for hip strengthening. Ex bike @ rpm 70 or higher (recumbent), f/b L knee strengthening, STM to TFL/Hamstrings as needed. Progress open chain knee ext 0 -30 and 60-90 deg's range.
--- NOTE | 2019-11-29 17:40 | PT.OTN ---
Current Diagnoses Unilateral primary osteoarthritis, left knee (11/29/19) Other specified joint disorders, left knee (11/29/19) Muscle weakness (generalized) (11/29/19) Other reduced mobility (11/29/19) Physical Therapy Treatment Note PT-OP-A Visit Information Start: 11/02/19 16:00 Freq: Status: Active Protocol: Document 11/29/19 10:35 LRN (Rec: 11/29/19 11:24 LRN [id number]) Out-Patient Physical Therapy Visit Information Visit Information Visit Type Treatment Note Visit Start Time 10:35 Visit Stop Time 11:32 Total Visit Minutes 57 Visit Number 5 Number of CORE MAKER HELPER Visits 0 Evaluation Information Evaluation Date 11/05/19 Precautions Precautions Neck surgery 2006, 2009, 2017. Still recovering from 2018 surgery. Stroke 04/2007 Hx of L shoulder, neck & back pain. Controlled High blood pressure & depression. PT-OP-B Current Condition Start: 11/02/19 16:00 Freq: Status: Active Protocol: Document 11/05/19 10:31 LRN (Rec: 11/05/19 11:21 LRN [id number]) Current Condition History of Current Condition Onset Date 3 months ago Current Complaints Diffuse, constant L knee pain. History of Current Condition Strained L knee on the treadmill. Belt on the treadmill kept moving right, so while she was walking she was pushing the belt to the left with her L LE. After walking 20 minutes she had so much pain she states she couldn't walk. She has been told she has an inflammed tendon, arthritis, and possibly a tiny tear in her L meniscus laterally. She was told to stay off of her feet so she reports being bedridden for 2 months. She can now stand on her feet. She was given a cortisone injection to L knee 3 weeks ago and found it helpful to relieve the pain . She is seeing SARAH Arriola next week. Prior Treatments and Tests X-rays MRI Medication for swelling, and taking an anti-inflammatory med. Future Testing and Treatments Planned Cortisone injection. Treatment Goals Patient/Caregiver Goals Pt goal is to relieve the pain and get back on the treadmill . Wants to get moving. Be able to sleep at night. Prior Functional Status Baseline Function- ADL's Independent Baseline Function- Mobility Independent Baseline Function- Gait Normal Baseline Function- Work/School Not working, on disability. Baseline Function- Other Insominia problem. Takes medications. Sleeps ~ 6hrs, tossing & turning. Current Functional Impairments (Reported) Functional Limitations- ADL's Severe limitation with weight bearing on the L LE, not standing on it at all due to pain. Functional Limitations- Mobility/Gait Not able to walk for exercise due to L knee pain. Functional Limitations- Work/School No change. Functional Limitations- Recreation/ Unable to walk for exercise. Hobbies Functional Limitations- Other Sleeps ~6 hrs, but sleep is more turbulent. Personal Factors Other Personal Factors That May Effect Hx of L shoulder, neck and Therapy/Recovery back pain. Controlled High blood pressure & depression. Hepatitis C & on chemotherapy for 1 yr and had a stoke 2006. Neck surgery 2006, 2009, 2018. Still recovering from 2018 surgery. Pain and weakness in L shoulder. Pt not working, on disability. PT-OP-C Subjective Start: 11/02/19 16:00 Freq: Status: Active Protocol: Document 11/29/19 10:35 LRN (Rec: 11/29/19 11:24 LRN [id number]) OP-PT Subjective Patient Comments Patient Comments States doing well. Has knee aching and exercise soreness in L lateral thigh and distal thigh. Today a little pain under the patella, no ms soreness. PT-OP-D Balance Start: 11/02/19 16:00 Freq: Status: Active Protocol: Document 11/05/19 10:31 LRN (Rec: 11/05/19 16:35 LRN [id number]) Balance Tests Single Limb Standing Single Limb- Right 12 Single Limb- Left 10 PT-OP-H Neuro Start: 11/02/19 16:00 Freq: Status: Active Protocol: Document 11/05/19 10:31 LRN (Rec: 11/05/19 11:21 LRN [id number]) Sensation Evaluation Gross Sensation Gross Sensation WNL Deep Tendon Reflex & Clonus Assessment Deep Tendon Reflex Bilateral Achilles Deep Tendon Reflex 3+ Normal But Brisk Bilateral Patellar Deep Tendon Reflex 4+ Brisk PT-OP-J Posture/Palpation/Skin Start: 11/02/19 16:00 Freq: Status: Active Protocol: Document 11/05/19 10:31 LRN (Rec: 11/05/19 16:35 LRN [id number]) Posture Evaluation Position Standing Evaluation View all positions Head/C-Spine Posture Forward Head L-Spine Posture Increased Lordosis Shoulder Posture (L) Elevated Pelvis Posture Anteriorly Tilted Ankle/Foot Posture (L) Calcaneal Eversion,(R) Calcaneal Eversion,(L) Calcaneal Inversion,(R) Forefoot Abducted Foot Arch (L) High Arch,(R) High Arch,(L ) Medium Arch,(R) Medium Arch Comments Posture Comments Pt stands with wide stance of ~12 apart. Palpation Assessment Location L patella Palpation Location Generally at L patella Palpation Findings Soft Tissue Tightness, Tenderness One Palpation Location L Biceps Femoris tendon at posterolateral knee joint. Palpation Findings Tenderness PT-OP-K Range of Motion Start: 11/02/19 16:00 Freq: Status: Active Protocol: Document 11/05/19 10:31 LRN (Rec: 11/05/19 16:35 LRN [id number]) Hip Goniometric Range of Motion Hip Left Passive Hip ROM WFL No Testing Position Supine Straight Leg Raise 80 Abduction 30 Internal Rotation 30 External Rotation 90 Right Passive Hip ROM WFL Yes Testing Position Supine Straight Leg Raise 95 Abduction 35 Internal Rotation 50 External Rotation 87 Knee Goniometric Range of Motion Knee Left Knee ROM WFL No Patient Position Supine Flexion Active (degrees) 125 Extension Active (degrees) 0 Right Knee ROM WFL Yes Patient Position Supine Flexion Active (degrees) 130 Extension Active (degrees) 0 Ankle and Foot Goniometric Range of Motion Ankle and Foot Right Active Ankle/Foot ROM WFL Yes Left Active Ankle/Foot ROM WFL Yes PT-OP-M Strength Start: 11/02/19 16:00 Freq: Status: Active Protocol: Document 11/12/19 10:31 LRN (Rec: 11/12/19 11:34 LRN [id number]) Hip Strength Hip Manual Muscle Testing Right Comments WNL, Generally 5/5, except IR/ ER not tested. Left Flexion (L2) 3+ Fair+ Extension (S1) 5 Normal Abduction 3+ Fair+ Adduction 3- Fair- PT-OP-Q Treatments Start: 11/02/19 16:00 Freq: Status: Active Protocol: Document 11/29/19 10:35 LRN (Rec: 11/29/19 11:24 LRN [id number]) Cardio Equipment Recumbent Bicycle Duration (Minutes) 10 Resistance 3 Seat Position 1 Other Green backrest. Treadmill Duration (Minutes) 10 Speed 1.8 Incline 0 Other Hands on TM Therapeutic Exercises Sitting Exercises Knee flex Sitting Exercise Name Knee flex strengthening Side left Resistance Lev 2 Reps/Minutes 15x 2 0-30 & 90-60 deg's extension Sitting Exercise Name 0-30 & 90-60 deg's extension Side left Equipment Used Lev 4 T-Band Reps/Minutes 15 x 2 Self-Care/Home Management Treatment Education Patient Education Home Exercise Program Activities Self-Care/Home Management Activities Issued & reviewed HEP: Hip strengthening (sidelie reverse clamshell, prone: hip ext & knee flex, sitting: knee flex & limited range ext). PT-OP-R Modalities Start: 11/02/19 16:00 Freq: Status: Active Protocol: Document 11/23/19 11:19 LRN (Rec: 11/23/19 12:25 LRN [id number]) Hot Pack/Cold Pack Treatment Cold Pack Location L knee Patient Position Supine Treatment Duration (minutes) 10 Comments Cryocuff, Leg elevated PT-OP-T Assessment and Plan Start: 11/02/19 16:00 Freq: Status: Active Protocol: Document 11/29/19 10:35 LRN (Rec: 11/29/19 11:24 LRN [id number]) Physical Therapy Assessment Goals Four Impairment Constant L knee pn causing turbulent sleep and hindering ability to sleep. Prison Goal (LTG) Be able to sleep at night at prior level of function (~6hrs with tossing and turning). ( 11/29/19: Less turbulent, less tossing/turning with lessened pain at knee, 75% improved.) LTG Duration 12/17/19 (11/29/19 Improved, 75% normal) Three Impairment L knee pain limiting ability to walk for exercise. Short Term Goal (STG) Pt will be able to walk on TM 10 minutes without pain. STG Duration 11/26/19 (11/29/19: Water Quality Specialist Goal (LTG) Pt will be able to improve SLS balance (@ least 12 sec's on left) for return to walking for exercise without pain. LTG Duration 12/17/19 Two Impairment Instability of L knee due to decreased L knee strength Short Term Goal (STG) Improve L knee strength from 4 /5 to 5/5 (flex 4/5, ext 5/5). STG Duration 12/03/19 (11/29/19: Prison Goal (LTG) Improve L knee strength with reduction in pain with gait to no greater than 1/10. LTG Duration 12/17/19 (11/29/19: One Impairment Pt lacks independent self care HEP. Prison Goal (LTG) Pt will be independent in a self care HEP. LTG Duration 12/17/19 (11/12/19: Progressing) Assessment Summary Assessment Normal L knee AROM. She has L suprapatella patella discomfort on full knee ext; possibly weakness at end-range . Pt needs trunk rotator strengthening. Physical Therapy Plan Frequency and Duration Frequency of Treatment 2x/Week Plan of Care Start Date 11/05/19 Plan of Care End Date 12/17/19 Next Visit Focus/Plan Next Note Type Treatment Note Next Visit Plan Add trunk rot strengthening and training to maintain neutral with exercises. Review hip strengthening ex's and issue larger pic HEP. Ex bike @ rpm 70 or higher ( recumbent), f/b L knee strengthening, STM to TFL/ Hamstrings as needed. Progress open chain knee ext 0 -30 and 60-90 deg's range.
--- NOTE | 2019-12-04 13:32 | PT.OTN ---
Current Diagnoses Unilateral primary osteoarthritis, left knee (12/04/19) Other specified joint disorders, left knee (12/04/19) Muscle weakness (generalized) (12/04/19) Other reduced mobility (12/04/19) Physical Therapy Treatment Note PT-OP-A Visit Information Start: 11/02/19 16:00 Freq: Status: Active Protocol: Document 12/04/19 12:46 LRN (Rec: 12/04/19 13:32 LRN [id number]) Out-Patient Physical Therapy Visit Information Visit Information Visit Type Treatment Note Visit Start Time 12:46 Visit Stop Time 13:28 Total Visit Minutes 42 Visit Number 6 Number of REHAB LIAISON Visits 0 Evaluation Information Evaluation Date 11/05/19 Precautions Precautions Neck surgery 2006, 2009, 2017. Still recovering from 2018 surgery. Stroke 04/2007 Hx of L shoulder, neck & back pain. Controlled High blood pressure & depression. PT-OP-B Current Condition Start: 11/02/19 16:00 Freq: Status: Active Protocol: Document 11/05/19 10:31 LRN (Rec: 11/05/19 11:21 LRN [id number]) Current Condition History of Current Condition Onset Date 3 months ago Current Complaints Diffuse, constant L knee pain. History of Current Condition Strained L knee on the treadmill. Belt on the treadmill kept moving right, so while she was walking she was pushing the belt to the left with her L LE. After walking 20 minutes she had so much pain she states she couldn't walk. She has been told she has an inflammed tendon, arthritis, and possibly a tiny tear in her L meniscus laterally. She was told to stay off of her feet so she reports being bedridden for 2 months. She can now stand on her feet. She was given a cortisone injection to L knee 3 weeks ago and found it helpful to relieve the pain . She is seeing SARAH Arriola next week. Prior Treatments and Tests X-rays MRI Medication for swelling, and taking an anti-inflammatory med. Future Testing and Treatments Planned Cortisone injection. Treatment Goals Patient/Caregiver Goals Pt goal is to relieve the pain and get back on the treadmill . Wants to get moving. Be able to sleep at night. Prior Functional Status Baseline Function- ADL's Independent Baseline Function- Mobility Independent Baseline Function- Gait Normal Baseline Function- Work/School Not working, on disability. Baseline Function- Other Insominia problem. Takes medications. Sleeps ~ 6hrs, tossing & turning. Current Functional Impairments (Reported) Functional Limitations- ADL's Severe limitation with weight bearing on the L LE, not standing on it at all due to pain. Functional Limitations- Mobility/Gait Not able to walk for exercise due to L knee pain. Functional Limitations- Work/School No change. Functional Limitations- Recreation/ Unable to walk for exercise. Hobbies Functional Limitations- Other Sleeps ~6 hrs, but sleep is more turbulent. Personal Factors Other Personal Factors That May Effect Hx of L shoulder, neck and Therapy/Recovery back pain. Controlled High blood pressure & depression. Hepatitis C & on chemotherapy for 1 yr and had a stoke 2006. Neck surgery 2006, 2009, 2018. Still recovering from 2018 surgery. Pain and weakness in L shoulder. Pt not working, on disability. PT-OP-C Subjective Start: 11/02/19 16:00 Freq: Status: Active Protocol: Document 12/04/19 12:46 LRN (Rec: 12/04/19 13:32 LRN [id number]) OP-PT Subjective Patient Comments Patient Comments .......... PT-OP-D Balance Start: 11/02/19 16:00 Freq: Status: Active Protocol: Document 11/05/19 10:31 LRN (Rec: 11/05/19 16:35 LRN [id number]) Balance Tests Single Limb Standing Single Limb- Right 12 Single Limb- Left 10 PT-OP-H Neuro Start: 11/02/19 16:00 Freq: Status: Active Protocol: Document 11/05/19 10:31 LRN (Rec: 11/05/19 11:21 LRN [id number]) Sensation Evaluation Gross Sensation Gross Sensation WNL Deep Tendon Reflex & Clonus Assessment Deep Tendon Reflex Bilateral Achilles Deep Tendon Reflex 3+ Normal But Brisk Bilateral Patellar Deep Tendon Reflex 4+ Brisk PT-OP-J Posture/Palpation/Skin Start: 11/02/19 16:00 Freq: Status: Active Protocol: Document 11/05/19 10:31 LRN (Rec: 11/05/19 16:35 LRN [id number]) Posture Evaluation Position Standing Evaluation View all positions Head/C-Spine Posture Forward Head L-Spine Posture Increased Lordosis Shoulder Posture (L) Elevated Pelvis Posture Anteriorly Tilted Ankle/Foot Posture (L) Calcaneal Eversion,(R) Calcaneal Eversion,(L) Calcaneal Inversion,(R) Forefoot Abducted Foot Arch (L) High Arch,(R) High Arch,(L ) Medium Arch,(R) Medium Arch Comments Posture Comments Pt stands with wide stance of ~12 apart. Palpation Assessment Location L patella Palpation Location Generally at L patella Palpation Findings Soft Tissue Tightness, Tenderness One Palpation Location L Biceps Femoris tendon at posterolateral knee joint. Palpation Findings Tenderness PT-OP-K Range of Motion Start: 11/02/19 16:00 Freq: Status: Active Protocol: Document 11/05/19 10:31 LRN (Rec: 11/05/19 16:35 LRN [id number]) Hip Goniometric Range of Motion Hip Left Passive Hip ROM WFL No Testing Position Supine Straight Leg Raise 80 Abduction 30 Internal Rotation 30 External Rotation 90 Right Passive Hip ROM WFL Yes Testing Position Supine Straight Leg Raise 95 Abduction 35 Internal Rotation 50 External Rotation 87 Knee Goniometric Range of Motion Knee Left Knee ROM WFL No Patient Position Supine Flexion Active (degrees) 125 Extension Active (degrees) 0 Right Knee ROM WFL Yes Patient Position Supine Flexion Active (degrees) 130 Extension Active (degrees) 0 Ankle and Foot Goniometric Range of Motion Ankle and Foot Right Active Ankle/Foot ROM WFL Yes Left Active Ankle/Foot ROM WFL Yes PT-OP-M Strength Start: 11/02/19 16:00 Freq: Status: Active Protocol: Document 11/12/19 10:31 LRN (Rec: 11/12/19 11:34 LRN [id number]) Hip Strength Hip Manual Muscle Testing Right Comments WNL, Generally 5/5, except IR/ ER not tested. Left Flexion (L2) 3+ Fair+ Extension (S1) 5 Normal Abduction 3+ Fair+ Adduction 3- Fair- PT-OP-Q Treatments Start: 11/02/19 16:00 Freq: Status: Active Protocol: Document 12/04/19 12:46 LRN (Rec: 12/04/19 13:32 LRN [id number]) Cardio Equipment Recumbent Bicycle Duration (Minutes) 10 Resistance 3 Seat Position 1 Other Green backrest. Therapeutic Exercises Prone Exercises Knee Flex Prone Exercise Name Knee Flex Side left Resistance Lev 2 T-Band Reps/Minutes 15 x 2 Hip Ext Prone Exercise Name Hip Ext Side bilateral Reps/Minutes 15 x 2 Sitting Exercises Trunk rot Sitting Exercise Name Trunk rot Side bilateral Resistance Lev 2 Reps/Minutes 15 x 2 Knee flex Sitting Exercise Name Knee flex strengthening Side left Resistance Lev 2 Reps/Minutes 15x Comments Holding T-Band in alignment with L foot. 0-30 & 90-60 deg's extension Sitting Exercise Name 0-30 & 90-60 deg's extension Side left Equipment Used Lev 2 T-Band Reps/Minutes 15 x 2 Self-Care/Home Management Treatment Education Patient Education Home Exercise Program Activities Self-Care/Home Management Activities Re-Issued & re-reviewed HEP ( larger pictures): Hip strengthening (sidelie reverse clamshell, prone: hip ext & knee flex, sitting: knee flex & limited range ext). Issued Lev 2 T-Band and doorway strap for HEP. PT-OP-R Modalities Start: 11/02/19 16:00 Freq: Status: Active Protocol: Document 11/23/19 11:19 LRN (Rec: 11/23/19 12:25 LRN [id number]) Hot Pack/Cold Pack Treatment Cold Pack Location L knee Patient Position Supine Treatment Duration (minutes) 10 Comments Cryocuff, Leg elevated PT-OP-T Assessment and Plan Start: 11/02/19 16:00 Freq: Status: Active Protocol: Document 12/04/19 12:46 LRN (Rec: 12/04/19 13:32 LRN [id number]) Physical Therapy Assessment Goals Four Impairment Constant L knee pn causing turbulent sleep and hindering ability to sleep. Correction Goal (LTG) Be able to sleep at night at prior level of function (~6hrs with tossing and turning). ( 11/29/19: Less turbulent, less tossing/turning with lessened pain at knee, 75% improved.) LTG Duration 12/17/19 (11/29/19 Improved, 75% normal) Three Impairment L knee pain limiting ability to walk for exercise. Short Term Goal (STG) Pt will be able to walk on TM 10 minutes without pain. STG Duration 11/26/19 Correction Goal (LTG) Pt will be able to improve SLS balance (@ least 12 sec's on left) for return to walking for exercise without pain. LTG Duration 12/17/19 Two Impairment Instability of L knee due to decreased L knee strength Short Term Goal (STG) Improve L knee strength from 4 /5 to 5/5 (flex 4/5, ext 5/5). STG Duration 12/03/19 (11/29/19: Upholstery Estimator Goal (LTG) Improve L knee strength with reduction in pain with gait to no greater than 1/10. LTG Duration 12/17/19 (11/29/19: One Impairment Pt lacks independent self care HEP. Correction Goal (LTG) Pt will be independent in a self care HEP. LTG Duration 12/17/19 (11/12/19: Progressing) Assessment Summary Assessment Pt L knee aching more today. Unable to use T-Band around both ankles for L hamstring curls due to patella pain; otherwise good tolerance to HEP: knee strengthening ex's. Physical Therapy Plan Frequency and Duration Frequency of Treatment 2x/Week Plan of Care Start Date 11/05/19 Plan of Care End Date 12/17/19 Next Visit Focus/Plan Next Note Type Treatment Note Next Visit Plan Start TM to progress towards painfree gait making adjustments to gait as needed. Review trunk rot strengthening, add training to maintain neutral spine with exercises. Review hip strengthening ex's. Ex bike @ rpm 70 or higher (recumbent), f/b L knee strengthening, STM to TFL/Hamstrings as needed. Progress open chain knee ext 0-30 and 60-90 deg's range.
--- NOTE | 2019-12-07 13:33 | PT.OTN ---
Current Diagnoses Unilateral primary osteoarthritis, left knee (12/07/19) Other specified joint disorders, left knee (12/07/19) Muscle weakness (generalized) (12/07/19) Other reduced mobility (12/07/19) Physical Therapy Treatment Note PT-OP-A Visit Information Start: 11/02/19 16:00 Freq: Status: Active Protocol: Document 12/07/19 12:46 LRN (Rec: 12/07/19 13:32 LRN [id number]) Out-Patient Physical Therapy Visit Information Visit Information Visit Type Treatment Note Visit Start Time 12:46 Visit Stop Time 13:38 Total Visit Minutes 52 Visit Number 7 Number of NEEDLE LOOM SETTER Visits 0 Evaluation Information Evaluation Date 11/05/19 Precautions Precautions Neck surgery 2006, 2009, 2017. Still recovering from 2018 surgery. Stroke 04/2007 Hx of L shoulder, neck & back pain. Controlled High blood pressure & depression. PT-OP-B Current Condition Start: 11/02/19 16:00 Freq: Status: Active Protocol: Document 11/05/19 10:31 LRN (Rec: 11/05/19 11:21 LRN [id number]) Current Condition History of Current Condition Onset Date 3 months ago Current Complaints Diffuse, constant L knee pain. History of Current Condition Strained L knee on the treadmill. Belt on the treadmill kept moving right, so while she was walking she was pushing the belt to the left with her L LE. After walking 20 minutes she had so much pain she states she couldn't walk. She has been told she has an inflammed tendon, arthritis, and possibly a tiny tear in her L meniscus laterally. She was told to stay off of her feet so she reports being bedridden for 2 months. She can now stand on her feet. She was given a cortisone injection to L knee 3 weeks ago and found it helpful to relieve the pain . She is seeing SARAH Arriola next week. Prior Treatments and Tests X-rays MRI Medication for swelling, and taking an anti-inflammatory med. Future Testing and Treatments Planned Cortisone injection. Treatment Goals Patient/Caregiver Goals Pt goal is to relieve the pain and get back on the treadmill . Wants to get moving. Be able to sleep at night. Prior Functional Status Baseline Function- ADL's Independent Baseline Function- Mobility Independent Baseline Function- Gait Normal Baseline Function- Work/School Not working, on disability. Baseline Function- Other Insominia problem. Takes medications. Sleeps ~ 6hrs, tossing & turning. Current Functional Impairments (Reported) Functional Limitations- ADL's Severe limitation with weight bearing on the L LE, not standing on it at all due to pain. Functional Limitations- Mobility/Gait Not able to walk for exercise due to L knee pain. Functional Limitations- Work/School No change. Functional Limitations- Recreation/ Unable to walk for exercise. Hobbies Functional Limitations- Other Sleeps ~6 hrs, but sleep is more turbulent. Personal Factors Other Personal Factors That May Effect Hx of L shoulder, neck and Therapy/Recovery back pain. Controlled High blood pressure & depression. Hepatitis C & on chemotherapy for 1 yr and had a stoke 2006. Neck surgery 2006, 2009, 2018. Still recovering from 2018 surgery. Pain and weakness in L shoulder. Pt not working, on disability. PT-OP-C Subjective Start: 11/02/19 16:00 Freq: Status: Active Protocol: Document 12/07/19 12:46 LRN (Rec: 12/07/19 13:32 LRN [id number]) OP-PT Subjective Patient Comments Patient Comments Feels good today, no L knee pain. States she did 10' on her TM at home 2 days in a row without pain, but walked in the middle and didn't push on the tread. PT-OP-D Balance Start: 11/02/19 16:00 Freq: Status: Active Protocol: Document 12/07/19 12:46 LRN (Rec: 12/07/19 13:32 LRN [id number]) Balance Tests Single Limb Standing Single Limb- Right 35 Single Limb- Left 55 PT-OP-H Neuro Start: 11/02/19 16:00 Freq: Status: Active Protocol: Document 11/05/19 10:31 LRN (Rec: 11/05/19 11:21 LRN [id number]) Sensation Evaluation Gross Sensation Gross Sensation WNL Deep Tendon Reflex & Clonus Assessment Deep Tendon Reflex Bilateral Achilles Deep Tendon Reflex 3+ Normal But Brisk Bilateral Patellar Deep Tendon Reflex 4+ Brisk PT-OP-J Posture/Palpation/Skin Start: 11/02/19 16:00 Freq: Status: Active Protocol: Document 11/05/19 10:31 LRN (Rec: 01/20/20 16:35 LRN [id number]) Posture Evaluation Position Standing Evaluation View all positions Head/C-Spine Posture Forward Head L-Spine Posture Increased Lordosis Shoulder Posture (L) Elevated Pelvis Posture Anteriorly Tilted Ankle/Foot Posture (L) Calcaneal Eversion,(R) Calcaneal Eversion,(L) Calcaneal Inversion,(R) Forefoot Abducted Foot Arch (L) High Arch,(R) High Arch,(L ) Medium Arch,(R) Medium Arch Comments Posture Comments Pt stands with wide stance of ~12 apart. Palpation Assessment Location L patella Palpation Location Generally at L patella Palpation Findings Soft Tissue Tightness, Tenderness One Palpation Location L Biceps Femoris tendon at posterolateral knee joint. Palpation Findings Tenderness PT-OP-K Range of Motion Start: 11/02/19 16:00 Freq: Status: Active Protocol: Document 11/05/19 10:31 LRN (Rec: 11/05/19 16:35 LRN [id number]) Hip Goniometric Range of Motion Hip Left Passive Hip ROM WFL No Testing Position Supine Straight Leg Raise 80 Abduction 30 Internal Rotation 30 External Rotation 90 Right Passive Hip ROM WFL Yes Testing Position Supine Straight Leg Raise 95 Abduction 35 Internal Rotation 50 External Rotation 87 Knee Goniometric Range of Motion Knee Left Knee ROM WFL No Patient Position Supine Flexion Active (degrees) 125 Extension Active (degrees) 0 Right Knee ROM WFL Yes Patient Position Supine Flexion Active (degrees) 130 Extension Active (degrees) 0 Ankle and Foot Goniometric Range of Motion Ankle and Foot Right Active Ankle/Foot ROM WFL Yes Left Active Ankle/Foot ROM WFL Yes PT-OP-M Strength Start: 11/02/19 16:00 Freq: Status: Active Protocol: Document 11/12/19 10:31 LRN (Rec: 11/12/19 11:34 LRN [id number]) Hip Strength Hip Manual Muscle Testing Right Comments WNL, Generally 5/5, except IR/ ER not tested. Left Flexion (L2) 3+ Fair+ Extension (S1) 5 Normal Abduction 3+ Fair+ Adduction 3- Fair- PT-OP-Q Treatments Start: 11/02/19 16:00 Freq: Status: Active Protocol: Document 12/07/19 12:46 LRN (Rec: 12/07/19 13:32 LRN [id number]) Cardio Equipment Treadmill Duration (Minutes) 10 Speed 1.8 Incline 0 Other Hands on TM Gym Equipment Cable Column (Body Solid) Leg Extension Details 0-30 deg's, 60-90 deg's Resistance 10# Reps/Time 15 Therapeutic Exercises Prone Exercises Knee Flex Prone Exercise Name Stretch f/b active flexion Resistance none Reps/Minutes 30 x Hip Ext Prone Exercise Name Hip Ext Side bilateral Reps/Minutes 30 x Sidelying Exercises Reverse Clamshell Sidelying Exercise Name Reverse Clamshell Side left Reps/Minutes 15x Clamshell Sidelying Exercise Name Clamshell Side left Reps/Minutes 30x Hip AD Sidelying Exercise Name Hip AD Reps/Minutes 30x Hip AB Sidelying Exercise Name Hip AB Reps/Minutes 30x PT-OP-R Modalities Start: 11/02/19 16:00 Freq: Status: Active Protocol: Document 12/07/19 12:46 LRN (Rec: 12/07/19 13:32 LRN [id number]) Hot Pack/Cold Pack Treatment Cold Pack Location L knee Patient Position Supine Treatment Duration (minutes) 10 Comments Cryocuff, Leg elevated PT-OP-T Assessment and Plan Start: 11/02/19 16:00 Freq: Status: Active Protocol: Document 12/07/19 12:46 LRN (Rec: 12/07/19 13:32 LRN [id number]) Physical Therapy Assessment Goals Four Impairment Constant L knee pn causing turbulent sleep and hindering ability to sleep. Clothespin Drier Operator Goal (LTG) Be able to sleep at night at prior level of function (~6hrs with tossing and turning). ( 11/29/19: Less turbulent, less tossing/turning with lessened pain at knee, 75% improved.) LTG Duration 12/17/19 (12/07/19: MET GOAL) Three Impairment L knee pain limiting ability to walk for exercise. Short Term Goal (STG) Pt will be able to walk on TM 10 minutes without pain. STG Duration 11/26/19 (12/07/19: MET GOAL) Shelter Goal (LTG) Pt will be able to improve SLS balance (@ least 12 sec's on left) for return to walking for exercise without pain. LTG Duration 12/17/19 (12/07/19: MET GOAL) Two Impairment Instability of L knee due to decreased L knee strength Short Term Goal (STG) Improve L knee strength from 4 /5 to 5/5 (flex 4/5, ext 5/5). STG Duration 12/03/19 (12/07/19: MET GOAL ) Shelter Goal (LTG) Improve L knee strength with reduction in pain with gait to no greater than 1/10. (12/07/19: When achy 2/10 uses ice and pain is eliminated) LTG Duration 12/17/19 (12/07/19: Partially MET GOAL) One Impairment Pt lacks independent self care HEP. Clothespin Drier Operator Goal (LTG) Pt will be independent in a self care HEP. LTG Duration 12/17/19 (11/12/19: Progressing) Assessment Summary Assessment Pt has done well with therapy and today almost all goals are noted to be met, she has discomfort in her L knee after an active day; therfore further strengthening and stretching to the L quad is needed.. Physical Therapy Plan Frequency and Duration Frequency of Treatment 2x/Week Plan of Care Start Date 11/05/19 Plan of Care End Date 12/17/19 Next Visit Focus/Plan Next Note Type Treatment Note Next Visit Plan Stretch L Quad and strengthen L knee. Review trunk rot strengthening & add training to maintain neutral spine with exercises. Review hip strengthening ex's. STM to TFL/Hamstrings as needed. Progress open chain knee ext 0 -30 and 60-90 deg's range strength.
--- NOTE | 2019-12-10 13:23 | PT-OP ANOTE ---
Pt left message that she could cancel her remaining appts if she felt she didn't need them; therefore the pt will be discharged from PT.
--- NOTE | 2019-12-10 17:06 | PT.OPDS ---
Current Diagnoses Unilateral primary osteoarthritis, left knee (12/07/19) Other specified joint disorders, left knee (12/07/19) Muscle weakness (generalized) (12/07/19) Other reduced mobility (12/07/19) Visit Care Team Role Provider Type Georgette Toussaint PA-C Primary Care Provider Advanced Hide Stretcher Hand Specialty: Medical Address: [address] [place] [address], [address], [address] Email: [email or web address] Saulo Byers MD Attending Provider Physician Specialty: Orthopedic Surgery Address: [address] [place] [address], [id number] Email: [email or web address] Visit Number Visit Number 7 Discharge Summary PT-OP-B Current Condition Start: 11/02/19 16:00 Freq: Status: Active Protocol: Document 11/05/19 10:31 LRN (Rec: 11/05/19 11:21 LRN [id number]) Current Condition History of Current Condition Onset Date 3 months ago Current Complaints Diffuse, constant L knee pain. History of Current Condition Strained L knee on the treadmill. Belt on the treadmill kept moving right, so while she was walking she was pushing the belt to the left with her L LE. After walking 20 minutes she had so much pain she states she couldn't walk. She has been told she has an inflammed tendon, arthritis, and possibly a tiny tear in her L meniscus laterally. She was told to stay off of her feet so she reports being bedridden for 2 months. She can now stand on her feet. She was given a cortisone injection to L knee 3 weeks ago and found it helpful to relieve the pain . She is seeing SARAH Arriola next week. Prior Treatments and Tests X-rays MRI Medication for swelling, and taking an anti-inflammatory med. Future Testing and Treatments Planned Cortisone injection. Treatment Goals Patient/Caregiver Goals Pt goal is to relieve the pain and get back on the treadmill . Wants to get moving. Be able to sleep at night. Prior Functional Status Baseline Function- ADL's Independent Baseline Function- Mobility Independent Baseline Function- Gait Normal Baseline Function- Work/School Not working, on disability. Baseline Function- Other Insominia problem. Takes medications. Sleeps ~ 6hrs, tossing & turning. Current Functional Impairments (Reported) Functional Limitations- ADL's Severe limitation with weight bearing on the L LE, not standing on it at all due to pain. Functional Limitations- Mobility/Gait Not able to walk for exercise due to L knee pain. Functional Limitations- Work/School No change. Functional Limitations- Recreation/ Unable to walk for exercise. Hobbies Functional Limitations- Other Sleeps ~6 hrs, but sleep is more turbulent. Personal Factors Other Personal Factors That May Effect Hx of L shoulder, neck and Therapy/Recovery back pain. Controlled High blood pressure & depression. Hepatitis C & on chemotherapy for 1 yr and had a stoke 2006. Neck surgery 2006, 2009, 2018. Still recovering from 2018 surgery. Pain and weakness in L shoulder. Pt not working, on disability. PT-OP-C Subjective Start: 11/02/19 16:00 Freq: Status: Active Protocol: Document 12/07/19 12:46 LRN (Rec: 12/07/19 13:32 LRN [id number]) OP-PT Subjective Patient Comments Patient Comments Feels good today, no L knee pain. States she did 10' on her TM at home 2 days in a row without pain, but walked in the middle and didn't push on the tread. PT-OP-D Balance Start: 11/02/19 16:00 Freq: Status: Active Protocol: Document 12/07/19 12:46 LRN (Rec: 12/07/19 13:32 LRN [id number]) Balance Tests Single Limb Standing Single Limb- Right 35 Single Limb- Left 55 PT-OP-H Neuro Start: 11/02/19 16:00 Freq: Status: Active Protocol: Document 11/05/19 10:31 LRN (Rec: 11/05/19 11:21 LRN [id number]) Sensation Evaluation Gross Sensation Gross Sensation WNL Deep Tendon Reflex & Clonus Assessment Deep Tendon Reflex Bilateral Achilles Deep Tendon Reflex 3+ Normal But Brisk Bilateral Patellar Deep Tendon Reflex 4+ Brisk PT-OP-J Posture/Palpation/Skin Start: 11/02/19 16:00 Freq: Status: Active Protocol: Document 11/05/19 10:31 LRN (Rec: 11/05/19 16:35 LRN [id number]) Posture Evaluation Position Standing Evaluation View all positions Head/C-Spine Posture Forward Head L-Spine Posture Increased Lordosis Shoulder Posture (L) Elevated Pelvis Posture Anteriorly Tilted Ankle/Foot Posture (L) Calcaneal Eversion,(R) Calcaneal Eversion,(L) Calcaneal Inversion,(R) Forefoot Abducted Foot Arch (L) High Arch,(R) High Arch,(L ) Medium Arch,(R) Medium Arch Comments Posture Comments Pt stands with wide stance of ~12 apart. Palpation Assessment Location L patella Palpation Location Generally at L patella Palpation Findings Soft Tissue Tightness, Tenderness One Palpation Location L Biceps Femoris tendon at posterolateral knee joint. Palpation Findings Tenderness PT-OP-K Range of Motion Start: 11/02/19 16:00 Freq: Status: Active Protocol: Document 11/05/19 10:31 LRN (Rec: 11/05/19 16:35 LRN [id number]) Hip Goniometric Range of Motion Hip Left Passive Hip ROM WFL No Testing Position Supine Straight Leg Raise 80 Abduction 30 Internal Rotation 30 External Rotation 90 Right Passive Hip ROM WFL Yes Testing Position Supine Straight Leg Raise 95 Abduction 35 Internal Rotation 50 External Rotation 87 Knee Goniometric Range of Motion Knee Left Knee ROM WFL No Patient Position Supine Flexion Active (degrees) 125 Extension Active (degrees) 0 Right Knee ROM WFL Yes Patient Position Supine Flexion Active (degrees) 130 Extension Active (degrees) 0 Ankle and Foot Goniometric Range of Motion Ankle and Foot Right Active Ankle/Foot ROM WFL Yes Left Active Ankle/Foot ROM WFL Yes PT-OP-M Strength Start: 11/02/19 16:00 Freq: Status: Active Protocol: Document 11/12/19 10:31 LRN (Rec: 11/12/19 11:34 LRN [id number]) Hip Strength Hip Manual Muscle Testing Right Comments WNL, Generally 5/5, except IR/ ER not tested. Left Flexion (L2) 3+ Fair+ Extension (S1) 5 Normal Abduction 3+ Fair+ Adduction 3- Fair- PT-OP-T Assessment and Plan Start: 11/02/19 16:00 Freq: Status: Active Protocol: Document 12/10/19 13:25 LRN (Rec: 12/10/19 13:29 LRN [id number]) Physical Therapy Assessment Goals Four Impairment Constant L knee pn causing turbulent sleep and hindering ability to sleep. Seat Cover Installer Goal (LTG) Be able to sleep at night at prior level of function (~6hrs with tossing and turning). ( 11/29/19: Less turbulent, less tossing/turning with lessened pain at knee, 75% improved.) LTG Duration 12/17/19 (12/07/19: MET GOAL) Three Impairment L knee pain limiting ability to walk for exercise. Short Term Goal (STG) Pt will be able to walk on TM 10 minutes without pain. STG Duration 11/26/19 (12/07/19: MET GOAL) Nursing Home Goal (LTG) Pt will be able to improve SLS balance (@ least 12 sec's on left) for return to walking for exercise without pain. LTG Duration 12/17/19 (12/07/19: MET GOAL) Two Impairment Instability of L knee due to decreased L knee strength Short Term Goal (STG) Improve L knee strength from 4 /5 to 5/5 (flex 4/5, ext 5/5). STG Duration 12/03/19 (12/07/19: MET GOAL ) Nursing Home Goal (LTG) Improve L knee strength with reduction in pain with gait to no greater than 1/10. (12/07/19: When achy 2/10 uses ice and pain is eliminated) LTG Duration 12/17/19 (12/07/19: Partially MET GOAL) One Impairment Pt lacks independent self care HEP. Seat Cover Installer Goal (LTG) Pt will be independent in a self care HEP. LTG Duration 12/17/19 (12/10/19: MET GOAL, per telephone conversation) Assessment Summary Assessment Pt has done well with therapy, goals met, and feel she knows what to continue exercising and feels ready for discharge to her self care program, as per telephone conversation. Physical Therapy Plan Discharge Physical Therapy Discharge Reasons Goals Met Discharge Comments No further therapy needed. Thank you for your referral.
== END 2019-12-11 09:07 ==
LOC: PHYS 12:45
PROVIDERS: PCP Physician Assistant; Visit Provider Orthopaedic Surgery
DX: M17.12 Unilateral primary osteoarthritis, left knee (principal); M25.862 Other specified joint disorders, left knee; M62.81 Muscle weakness (generalized); Z74.09 Other reduced mobility
CPT/HCPCS: 97010; 97035; 97110; 97161; 97535

== ENCOUNTER → 2020-04-01 12:32 | Outpatient (CLI) | payer MEDICARE, SELFPAY ==
--- NOTE | 2020-04-01 12:34 | DI.RAD.S_ITS ---
PROCEDURE: XR CERVICAL SPINE 4V OR 5V INDICATIONS: cervical radiculopathy TECHNIQUE: 5 views of the cervical spine acquired. COMPARISON: None. FINDINGS: Bones: No fractures or dislocations to the C7 level. Status post ACDF at C3-C4, and C4-C5. Hardware appears intact. Expected postoperative alignment. Chronic osseous fusion of the C5-C6 and C6-C7 vertebral body is also noted. Multilevel degenerative endplate sclerosis and spurring. Diffuse facet arthropathy. Straightening of the normal lordotic curvature. On the left, mild to moderate bony foraminal narrowing at C6-C7 and C7-T1. On the right, moderate bony foraminal narrowing seen at the level of C4-C5. Soft tissues: No prevertebral soft tissue swelling. IMPRESSION: Postsurgical and degenerative changes as above. Mild to moderate bony foraminal stenoses on the left at C6-C7 and C7-T1 Moderate right C4-C5 bony foraminal narrowing Dictated by: Suman Nelson M.D. on 04/01/2020 at 12:57 Approved by: Suman Nelson M.D. on 04/01/2020 at 13:00
== END ==
PROVIDERS: PCP Family Medicine; Referring Provider Physical Medicine & Rehabilitation; Visit Provider Physical Medicine & Rehabilitation
DX: M47.22 Other spondylosis with radiculopathy, cervical region (principal); G89.4 Chronic pain syndrome; M48.03 Spinal stenosis, cervicothoracic region; M48.02 Spinal stenosis, cervical region; Z98.1 Arthrodesis status
CPT/HCPCS: 72050

== ENCOUNTER → 2020-04-08 09:59 | Outpatient (CLI) | payer MEDICARE, SELFPAY ==
--- NOTE | 2020-04-08 | DI.MG.S_ITS ---
BILATERAL DIGITAL SCREENING MAMMOGRAM 3D/2D WITH CAD: 04/08/2020 CLINICAL: Routine screening. Family history of breast cancer. Comparison is made to exams dated: 03/06/2019 mammogram, 02/10/2018 mammogram, 02/03/2017 mammogram, 02/03/2016 mammogram, 01/29/2015 mammogram, and 01/25/2014 mammogram - [facility]. There are scattered fibroglandular elements in both breasts. Current study was also evaluated with a Computer Aided Detection (CAD) system. No significant masses, calcifications, or other findings are seen in either breast. There has been no significant interval change. IMPRESSION: NEGATIVE There is no mammographic evidence of malignancy. A 1 year screening mammogram is recommended. This exam was interpreted at Station ID: [id number]. NOTE: For mammograms, a report in lay terms will be sent to the patient. Approximately 15% of breast malignancies will not be visualized mammographically. In the management of a palpable breast mass, a negative mammogram must not discourage biopsy of a clinically suspicious lesion. Electronically Signed By: Matthew sifuentes/saw:04/08/2020 11:23:37 letter sent: Normal Exam ACR BI-RADS Category 1: Negative [id number]
== END ==
PROVIDERS: PCP Family Medicine; Referring Provider Family Medicine; Visit Provider Family Medicine
DX: Z12.31 Encounter for screening mammogram for malignant neoplasm of breast (principal); Z80.3 Family history of malignant neoplasm of breast
CPT/HCPCS: 77063; 77067

== ENCOUNTER → 2020-04-15 10:51 | Outpatient (CLI) | payer MEDICARE, SELFPAY ==
--- NOTE | 2020-04-15 10:52 | DI.MRI.S_ITS ---
PROCEDURE: MR CERVICAL SPINE WO/W CON INDICATIONS: left arm weakness s/p cervical fusion TECHNIQUE: Noncontrast sagittal T1 spin echo and T2 fast spin echo, sagittal STIR, foraminal oblique sagittal T2 fast spin echo, axial gradient echo or T2 fast spin echo through the cervical spine. After the administration of contrast, axial and sagittal T1 spin echo with fat saturation through the cervical spine. COMPARISON: [facility], CR, XR CERVICAL SPINE 4V OR 5V, 04/01/2020, 12:28. [facility], MR, C-SPINE WITHOUT CONTRAST, 05/24/2017, 13:38. FINDINGS: Image quality: Excellent. Alignment and curvature: Anterior fusion is present from C3-C5. Apparent osseous fusion is noted C5-6 and C6-7. Marrow: Marrow is normal in overall signal, without suspicious enhancement. Spinal cord: Visualized spinal cord has normal size and signal. No cerebellar tonsillar herniation. No abnormal intramedullary enhancement. Paraspinous soft tissues: No paravertebral masses or suspicious enhancement. Discs: Multilevel disc desiccation is present. C2-3: No disc bulge or spinal stenosis. Moderate left foraminal narrowing with uncovertebral hypertrophy. No interval change. C3-4: Postsurgical changes are present with mild spinal stenosis. No foraminal narrowing. Mild uncovertebral hypertrophy. No interval change. C4-5: Postsurgical changes are present. Mild to moderate spinal stenosis. Mild bilateral foraminal narrowing, slightly progressive on the left compared to prior exam. Uncovertebral hypertrophy are present. C5-6: Postsurgical changes are present. No spinal stenosis or foraminal narrowing. No interval change. C6-7: Postsurgical changes are present. No spinal stenosis. Mild left foraminal narrowing, slightly progressive. C7-T1: No disc bulge, spinal stenosis or foraminal narrowing. IMPRESSION: 1. Multilevel postsurgical changes as above. 2. Multiple foraminal narrowing, somewhat progressive as above. Foraminal narrowing is predominately secondary to facet arthropathy. Dictated by: Fatmata Fox M.D. on 04/15/2020 at 15:22 Approved by: Fatmata Fox M.D. on 04/15/2020 at 15:29
== END ==
PROVIDERS: PCP Family Medicine; Referring Provider Physical Medicine & Rehabilitation; Visit Provider Physical Medicine & Rehabilitation
DX: R29.898 Other symptoms and signs involving the musculoskeletal system (principal); M48.02 Spinal stenosis, cervical region; M47.812 Spondylosis without myelopathy or radiculopathy, cervical region; Z98.1 Arthrodesis status
CPT/HCPCS: 72156

== ENCOUNTER 2020-05-15 09:39 | Outpatient (CLI) | payer MEDICARE, SELFPAY | END 2020-05-15 16:09 | disposition home or self-care (01) | LOC: PHYS 09:41 | PROVIDERS: PCP Family Medicine; Referring Provider Physical Medicine & Rehabilitation; Visit Provider Physical Medicine & Rehabilitation | DX: R29.898 Other symptoms and signs involving the musculoskeletal system (principal); Z98.1 Arthrodesis status | CPT/HCPCS: 95886; 95909 ==

== ENCOUNTER → 2020-08-18 10:39 | Outpatient (CLI) | payer MEDICARE, SELFPAY ==
[2020-08-20 08:21] LABS: COVID19 Sendout Not Detected (Not Detect)
== END ==
PROVIDERS: PCP Family Medicine; Visit Provider Physician Assistant
DX: Z11.59 Encounter for screening for other viral diseases (principal)
CPT/HCPCS: 87635

== ENCOUNTER 2020-08-21 09:03 | Outpatient (CLI) | payer MEDICARE, SELFPAY ==
[2020-08-21] VITALS (10 sets, daily range): BP systolic 112–146; BP diastolic 57–67; PULSE 12–69; RESP 11–93; TEMP 36.2; O2SAT 94–97
--- NOTE | 2020-08-21 09:04 | DI.RAD.S_ITS ---
PROCEDURE: PAIN C/T INTERLAMINAR INJECT INDICATIONS: SPINAL STENOSIS COMPARISON: [facility], CR, XR CERVICAL SPINE 4V OR 5V, 04/01/2020, 12:28. [facility], MR, MR CERVICAL SPINE WO/W CON, 04/15/2020, 11:16. FINDINGS: Fluoroscopic spot filming was performed to verify placement of a spinal needle at the C5-C6 level, as labeled on the films. Appropriate location(s) of the needle tip(s) was confirmed by injection of iodinated contrast. IMPRESSION: Intraprocedural examination within normal limits. Dictated by: Cole Clemens M.D. on 08/21/2020 at 11:12 Approved by: Cole Clemens M.D. on 08/21/2020 at 11:12
[2020-08-21] MEDS: MIDAZOLAM 5 MG/5 ML VIAL IV (10:29)
[2020-08-21] MEDS: BUPIVACAINE 0.25% (PF) VIAL 2 ML INJ (10:36)
[2020-08-21] MEDS: IOPAMIDOL 15 ML VIAL 3 ML INJ (10:37)
[2020-08-21] MEDS: DEXAMETHASONE 10 MG/ML VIAL 30 MG INJ (10:37)
[2020-08-21] MEDS: fentaNYL 100 MCG/2 ML INJ 50 MCG IV (10:38)
--- NOTE | 2020-08-21 10:48 | P.PCN_ITS ---
Date/Time/Diagnoses Date of procedure: 08/21/20 Time of procedure: 10:48 Pre-procedure diagnosis: 1. CERVICAL STENOSIS, 2. CERVICAL HNP WITH UPPER EXTREMITY RADICULAR FEATURES Post-procedure diagnosis: same Procedure Notes Procedure: 1. FLUORSCOPICALLY GUIDED CONTRAST CONTROLLED INTERLAMINAR EPIDURAL STEROID INJECTION - C5/6 TL OSEAS Indications: Jyoti is referred by Dr. Alcantara for treatment of Cervical HNP with Upper Extremity Paresthesias. Physician: Alfie Tarango Total Fluoroscopy time (seconds): 34 Total sedation minutes: 20 Complications: none Procedure in detail & Post-procedure care: FINDINGS Cervical Stenosis due to disc deterioration and nerve root irritation and nerve root irritation DESCRIPTION OF PROCEDURE Fluoroscopically guided, contrast-controlled C5/6 translaminar epidural steroid injection with conscious sedation. Following review of allergy and review of potential side effects and complications, including, but not necessarily limited to, infection, allergic reaction, local tissue breakdown, temporary as well as permanent nerve injury, stroke, paralysis, and possible , the patient indicated that patient understood and agreed to proceed. An informed consent document was signed by the patient, witnessed by a nurse, and placed in the patient's chart. Additionally, other treatment options including modalities, medications, and physical therapy were reviewed with the patient. After review of previous anaesthesic history and IV conscious sedation the patient was deemed safe to proceed with today?s procedure with IV conscious sedation as ASA class II designation. Safety time-out was performed to confirm patient ID, procedure to be performed and site of procedure. IV sedation was accomplished with a combination of 2mg of Versed and 50mcg of Fentanyl administered by the RN after DO order, titrated to patient comfort during the course of the procedure while the patient remained responsive to all verbal commands. In the prone position, following sterile prep and drape of the cervical region, the C5/6 translaminar space was identified fluoroscopically. The skin was anesthetized via a 25-gauge 1.5-inch needle with 1% lidocaine solution. At this point, a 25-gauge, 2.5-inch short bevel spinal needle was atraumatically introduced and advanced under fluoroscopic guidance into epidural space at the C5/6 translaminar space. Depth was confirmed on lateral view. Radiological data, including multiple fluoroscopic views of the cervical spine, reveal a spinal needle at the C5/6 translaminar space. Lateral views then show placement of the needle in the epidural space. Subsequent views show contrast material flowing superiorly and inferiorly in the epidural space. DSA fluoroscopy with live contrast injection, once again, confirmed no vascular or intrathecal uptake. At this point, using loss of resistance technique with saline and air, the epidural space was entered. Following negative aspiration, injection of ap proximately 1.5 cc of Isovue-200 with live fluoroscopy in the AP view confirmed epidural flow in the epidural space without vascular or intrathecal uptake observed. Subsequently, a test dose of 1cc of 1% lidocaine solution was injected and patient was observed for two minutes without signs or symptoms of complications, including abdominal pain, shortness of breath, bilateral upper or lower extremity weakness, nausea and vomiting, prior to steroid injection. At this point, 3cc or 30mg of dexamethasone was then injected without incident. The patient tolerated the procedure well without signs or symptoms of complications prior to being transferred to the recovery area for further monitoring, The patient was then transferred to the recovery area where they were observed for an appropriate period of time after the injection. The patient reported a VAS score of 6 prior to the procedure and a post-procedure VAS of 0. POST OP INSTRUCTIONS The patient was provided a Pain Log to continue to record their response to the target-specific procedure prior to follow-up visit with the referring provider. Additionally, specific post-injection care instructions and a contact number to our office were provided if concerns arise regarding possible complications associated with the procedure are suspected.
== END 2020-08-21 11:30 | disposition home or self-care (01) ==
PROVIDERS: PCP Family Medicine; Referring Provider Physical Medicine & Rehabilitation; Visit Provider Physical Medicine & Rehabilitation
DX: M48.02 Spinal stenosis, cervical region (principal); M50.122 Cervical disc disorder at C5-C6 level with radiculopathy
CPT/HCPCS: 62321; 99152; J1100; J2250; J3010

== ENCOUNTER → 2020-12-23 12:34 | Outpatient (CLI) | payer MEDICARE, SELFPAY ==
[2020-12-23 14:43] LABS: COVID19 -Nasal RAPID Negative (Negative)
== END ==
PROVIDERS: PCP Family Medicine; Visit Provider Physical Medicine & Rehabilitation
DX: Z20.822 Contact with and (suspected) exposure to COVID-19 (principal)
CPT/HCPCS: 87635; C9803

== ENCOUNTER 2020-12-25 09:19 | Outpatient (CLI) | payer MEDICARE, SELFPAY ==
[2020-12-25 10:00] VITALS: BP 116/71; PULSE 65; RESP 16; TEMP 37.1; O2SAT 96
--- NOTE | 2020-12-25 10:38 | PC.NURSE ---
pt checked in and admitted for procedure, slightly confused, stated she had driven herself here and taken oxycodone at 0830. informed patient that controlled medicines/narcotics should never be combined with driving vehicles or alcohol. procedure cancelled due to not following protocol with no ride available. unable to attain one despite calling family members. dr tarango and patient concluded to reschedule procedure at a later date if necessary. pt's IV removed and went to dressing room to change out of gown, let without nursing accompaniment or instruction. Dr. Tarango aware.
== END 2020-12-25 10:40 | disposition home or self-care (01) ==
LOC: RAD 09:21
PROVIDERS: PCP Family Medicine; Referring Provider Physical Medicine & Rehabilitation; Visit Provider Physical Medicine & Rehabilitation
DX: M54.12 Radiculopathy, cervical region (principal); Z53.8 Procedure and treatment not carried out for other reasons
CPT/HCPCS: J1100; J2250; J3010

== ENCOUNTER → 2021-01-30 14:51 | Outpatient (CLI) | payer MEDICARE, SELFPAY ==
[2021-01-30 15:42] LABS: Add Manual Diff / Slide Review NO; Basophils Absolute Auto 100 /uL (0-100); Eosinophils Absolute Auto 100 /uL (0-450); Eosinophils Percent Auto 1.7 % (2-4); Hematocrit 43.4 % (36-46); Hemoglobin 14.3 g/dL (12.0-16.0); Lymphocytes Absolute Auto 1800 /uL (1100-4500); Lymphocytes Percent Auto 20.3 % (25-40); Mean Corpuscular HGB Conc 32.9 % (30-36); Mean Corpuscular Hemoglobin 29.7 PG (26-34); Mean Corpuscular Volume 90.3 fL (80-100); Monocytes Absolute Auto 1100 /uL (0-900); Monocytes Percent Auto 12.1 % (3-14); Neutrophils Absolute Auto 5600 /uL (1500-7000); Neutrophils Percent Auto 64.9 % (50-75); Platelet Count 277 X10^3/uL (150-400); Red Blood Cell Count 4.81 X10^6/uL (4.0-5.2); Red Cell Distribution Width 14.1 % (11.6-14.8); White Blood Cell Count 8.7 X10^3/uL (4.5-11.0)
[2021-01-30 15:55] LABS: Alanine Aminotransferase 51 IU/L (<35); Albumin 4.5 g/dL (3.5-5.0); Albumin Globulin Ratio 1.4 (1.0-2.8); Alkaline Phosphatase 134 U/L (38-126); Aspartate Aminotransferase 51 IU/L (14-36); Bilirubin Total 0.4 mg/dL (0.2-1.3); Blood Urea Nitrogen 17 mg/dL (7-17); Calcium 10.3 mg/dL (8.4-10.2); Carbon Dioxide 26 mmol/L (22-32); Chloride 102 mmol/L (98-107); Cholesterol 180 mg/dL (140-199); Estimated Glomerular Filt Rate > 60.0 mL/min (>60); Globulin 3.2 g/dL (1.7-4.1); Glucose 87 mg/dL (80-110); HDL Cholesterol 36 mg/dL (40-60); HEMOLYSIS < 15 (0-50); LDL Cholesterol Calculated 120 mg/dL (<100); Potassium 4.2 mmol/L (3.4-5.1); Sodium 139 mmol/L (137-145); Total Protein 7.7 g/dL (6.3-8.2); Triglycerides 119 mg/dL (35-150)
[2021-01-30 16:24] LABS: TSH w/ Reflex to FT4 0.78 uIU/mL (0.47-4.68)
== END ==
PROVIDERS: PCP Family Medicine; Referring Provider Family Medicine; Visit Provider Family Medicine
DX: E03.9 Hypothyroidism, unspecified (principal); E78.2 Mixed hyperlipidemia; I10 Essential (primary) hypertension
CPT/HCPCS: 36415; 80053; 80061; 84443; 85025

== ENCOUNTER → 2021-02-19 11:15 | Outpatient (CLI) | payer MEDICARE, SELFPAY ==
[2021-02-19] MEDS: COVID-19 VACC #1, MRNA(MOD) 100 MCG/0.5 ML VIAL IM (11:27)
== END ==
PROVIDERS: PCP Family Medicine; Visit Provider Internal Medicine
DX: Z23 Encounter for immunization (principal)
CPT/HCPCS: 0011A; 91301

== ENCOUNTER → 2021-03-27 12:13 | Outpatient (CLI) | payer MEDICARE, SELFPAY ==
[2021-03-27] MEDS: COVID-19 VACC #2, MRNA(MOD) 100 MCG/0.5 ML VIAL IM (12:25)
== END ==
PROVIDERS: PCP Family Medicine; Visit Provider Internal Medicine
DX: Z23 Encounter for immunization (principal)
CPT/HCPCS: 0012A; 91301

== ENCOUNTER → 2021-04-30 10:08 | Outpatient (CLI) | payer MEDICARE, SELFPAY ==
[2021-04-30 10:47] LABS: Add Manual Diff / Slide Review NO; Basophils Absolute Auto 100 /uL (0-100); Basophils Percent Auto 1.2 % (0-2); Eosinophils Absolute Auto 500 /uL (0-450); Eosinophils Percent Auto 6.7 % (2-4); Hematocrit 42.4 % (36-46); Lymphocytes Absolute Auto 2400 /uL (1100-4500); Lymphocytes Percent Auto 30.6 % (25-40); Mean Corpuscular Hemoglobin 29.8 PG (26-34); Mean Corpuscular Volume 90.3 fL (80-100); Monocytes Absolute Auto 1200 /uL (0-900); Monocytes Percent Auto 15.4 % (3-14); Neutrophils Absolute Auto 3600 /uL (1500-7000); Neutrophils Percent Auto 46.1 % (50-75); Platelet Count 275 X10^3/uL (150-400); Red Blood Cell Count 4.69 X10^6/uL (4.0-5.2); Red Cell Distribution Width 14.2 % (11.6-14.8); White Blood Cell Count 7.9 X10^3/uL (4.5-11.0)
[2021-04-30 10:56] LABS: Alanine Aminotransferase 36 IU/L (<35); Albumin 4.4 g/dL (3.5-5.0); Albumin Globulin Ratio 1.3 (1.0-2.8); Alkaline Phosphatase 142 U/L (38-126); Aspartate Aminotransferase 35 IU/L (14-36); BUN Creatinine Ratio 23.2 (6-22); Bilirubin Total 0.3 mg/dL (0.2-1.3); Blood Urea Nitrogen 16 mg/dL (7-17); Calcium 10.7 mg/dL (8.4-10.2); Carbon Dioxide 31 mmol/L (22-32); Chloride 102 mmol/L (98-107); Estimated Glomerular Filt Rate > 60.0 mL/min (>60); Globulin 3.5 g/dL (1.7-4.1); Glucose 101 mg/dL (80-110); HEMOLYSIS < 15 (0-50); Potassium 4.7 mmol/L (3.4-5.1); Sodium 142 mmol/L (137-145); Total Protein 7.9 g/dL (6.3-8.2)
[2021-04-30 16:45] LABS: HIV 1 & 2 Ab/Ag 4th Gen Combo NEGATIVE (NEGATIVE)
[2021-05-01 07:09] LABS: Hepatitis B Surf AB Quant 74.9 mIU/mL (Immunity>9.9)
[2021-05-12 10:22] LABS: Bullous Pemphigoid 180 IgG AB 3.7 U/ml (.); Bullous Pemphigoid 230 IgG AB 11.1 U/ml (.)
== END ==
PROVIDERS: PCP Family Medicine; Referring Provider Physician Assistant; Visit Provider Physician Assistant
DX: T14.8XXA Other injury of unspecified body region, initial encounter (principal)
CPT/HCPCS: 36415; 80053; 83516; 85025; 86706; 87389

== ENCOUNTER → 2021-09-17 12:33 | Outpatient (CLI) | payer MEDICARE, SELFPAY ==
--- NOTE | 2021-09-17 | DI.MG.S_ITS ---
BILATERAL DIGITAL SCREENING MAMMOGRAM 3D/2D WITH CAD: 09/17/2021 CLINICAL: Routine screening. Family history of breast cancer. Comparison is made to exams dated: 04/08/2020 mammogram, 03/06/2019 mammogram, and 02/10/2018 mammogram - [facility]. There are scattered fibroglandular elements in both breasts. Current study was also evaluated with a Computer Aided Detection (CAD) system. No significant masses, calcifications, or other findings are seen in either breast. There has been no significant interval change. IMPRESSION: NEGATIVE There is no mammographic evidence of malignancy. A 1 year screening mammogram is recommended. This exam was interpreted at Station ID: [id number]. NOTE: For mammograms, a report in lay terms will be sent to the patient. Approximately 15% of breast malignancies will not be visualized mammographically. In the management of a palpable breast mass, a negative mammogram must not discourage biopsy of a clinically suspicious lesion. Electronically Signed By: Saulo lockhart/saw:09/17/2021 14:00:28 letter sent: Normal Exam ACR BI-RADS Category 1: Negative [id number]
== END ==
PROVIDERS: PCP Family Medicine; Referring Provider Family Medicine; Visit Provider Family Medicine
DX: Z12.31 Encounter for screening mammogram for malignant neoplasm of breast (principal); Z80.3 Family history of malignant neoplasm of breast
CPT/HCPCS: 77063; 77067

== ENCOUNTER → 2023-01-19 13:44 | Outpatient (CLI) | payer MEDICARE, SELFPAY ==
--- NOTE | 2023-01-19 | DI.MG.S_ITS ---
BILATERAL DIGITAL SCREENING MAMMOGRAM 3D/2D WITH CAD: 01/19/2023 CLINICAL: Routine screening. Family history of breast cancer. Comparison is made to exams dated: 09/17/2021 mammogram, 04/08/2020 mammogram, and 03/06/2019 mammogram - [facility]. There are scattered areas of fibroglandular density in both breasts (category b / 25%-50% glandular tissue). Current study was also evaluated with a Computer Aided Detection (CAD) system. No significant masses, calcifications, or other findings are seen in either breast. There has been no significant interval change. IMPRESSION: NEGATIVE There is no mammographic evidence of malignancy. A 1 year screening mammogram is recommended. Based on the Tyrer Cuzick model (a risk assessment model) the patient's lifetime risk is 12.8% and her 10 year risk is 5.5%. According to the ACR, ACS, and NCCN guidelines, an annual breast MRI exam along with mammogram is recommended if the patient's lifetime risk is 20% or greater. This exam was interpreted at Station ID: [id number]. NOTE: For mammograms, a report in lay terms will be sent to the patient. Approximately 15% of breast malignancies will not be visualized mammographically. In the management of a palpable breast mass, a negative mammogram must not discourage biopsy of a clinically suspicious lesion. Electronically Signed By: Albert majano/saw:01/19/2023 14:39:42 letter sent: Normal Exam ACR BI-RADS Category 1: Negative [id number]
--- NOTE | 2023-01-19 13:46 | DI.RAD.S_ITS ---
PROCEDURE: XR CERVICAL SPINE 2V OR 3V INDICATIONS: Progressive neck pain TECHNIQUE: 3 view(s) of the cervical spine were acquired. COMPARISON: [facility], CR, XR CERVICAL SPINE 4V OR 5V, 04/01/2020, 12:28. FINDINGS: Bones: No fractures or dislocations to the C7 level. Postsurgical changes from C3-C5 fusion with anterior plate and screws. Hardware appears intact. Chronic osseous fusion of C5-6 and C6-7 also present as before. Multilevel degenerative changes redemonstrated. Soft tissues: No prevertebral soft tissue swelling. IMPRESSION: Postsurgical changes from cervical fusion. Multilevel degenerative changes redemonstrated. No definite acute fracture identified. If symptoms persist, follow-up radiographs and/or CT may be helpful for further evaluation. Dictated by: Ayan Mosqueda M.D. on 01/19/2023 at 16:01 Approved by: Ayan Mosqueda M.D. on 01/19/2023 at 16:04
[2023-01-19 15:19] LABS: Add Manual Diff / Slide Review NO; Basophils Absolute Auto 100 /uL (0-100); Basophils Percent Auto 1.4 % (0-2); Eosinophils Absolute Auto 200 /uL (0-450); Hematocrit 44.4 % (36-46); Hemoglobin 14.5 g/dL (12.0-16.0); Lymphocytes Absolute Auto 1500 /uL (1100-4500); Lymphocytes Percent Auto 16.8 % (25-40); Mean Corpuscular HGB Conc 32.8 % (30-36); Mean Corpuscular Hemoglobin 29.9 PG (26-34); Mean Corpuscular Volume 91.3 fL (80-100); Monocytes Absolute Auto 1200 /uL (0-900); Monocytes Percent Auto 12.9 % (3-14); Neutrophils Absolute Auto 6100 /uL (1500-7000); Neutrophils Percent Auto 66.9 % (50-75); Platelet Count 299 X10^3/uL (150-400); Red Blood Cell Count 4.86 X10^6/uL (4.0-5.2); Red Cell Distribution Width 14.4 % (11.6-14.8); White Blood Cell Count 9.2 X10^3/uL (4.5-11.0)
[2023-01-19 15:43] LABS: Alanine Aminotransferase 38 IU/L (<35); Albumin 4.5 g/dL (3.5-5.0); Albumin Globulin Ratio 1.3 (1.0-2.8); Alkaline Phosphatase 127 U/L (38-126); Aspartate Aminotransferase 32 IU/L (14-36); BUN Creatinine Ratio 15.5 (6-22); Bilirubin Total 0.5 mg/dL (0.2-1.3); Blood Urea Nitrogen 11 mg/dL (7-17); Calcium 9.8 mg/dL (8.4-10.2); Carbon Dioxide 30 mmol/L (22-32); Chloride 99 mmol/L (98-107); Cholesterol 219 mg/dL (140-199); Estimated Glomerular Filt Rate > 60 mL/min (>60); Globulin 3.5 g/dL (1.7-4.1); Glucose 86 mg/dL (80-110); HDL Cholesterol 42 mg/dL (40-60); HEMOLYSIS < 15 (0-50); LDL Cholesterol Calculated 148 mg/dL (<100); Potassium 4.6 mmol/L (3.4-5.1); Sodium 140 mmol/L (137-145); Triglycerides 146 mg/dL (35-150)
[2023-01-19 16:11] LABS: TSH w/ Reflex to FT4 1.78 uIU/mL (0.47-4.68)
== END ==
PROVIDERS: PCP Family Medicine; Referring Provider Family Medicine; Visit Provider Family Medicine
DX: Z12.31 Encounter for screening mammogram for malignant neoplasm of breast (principal); M47.812 Spondylosis without myelopathy or radiculopathy, cervical region; E78.2 Mixed hyperlipidemia; F41.1 Generalized anxiety disorder; I10 Essential (primary) hypertension; Z80.3 Family history of malignant neoplasm of breast; Z98.1 Arthrodesis status
CPT/HCPCS: 36415; 72040; 77063; 77067; 80053; 80061; 84443; 85025

== ENCOUNTER → 2023-06-23 12:56 | Outpatient (CLI) | payer MEDICARE, SELFPAY ==
--- NOTE | 2023-06-23 12:58 | DI.MRI.S_ITS ---
PROCEDURE: MR CERVICAL SPINE WO CON INDICATIONS: Left upper extremity radiculopathy chronic TECHNIQUE: Noncontrast sagittal T1 spin echo and T2 fast spin echo, sagittal STIR, foraminal oblique sagittal T2 fast spin echo, and axial gradient echo or T2 fast spin echo through the cervical spine. COMPARISON: [facility], MR, MR CERVICAL SPINE WO/W CON, 04/15/2020, 11:16. [facility], CR, XR CERVICAL SPINE 2V OR 3V, 01/19/2023, 13:48. [facility], MR, C-SPINE WITHOUT CONTRAST, 05/24/2017, 13:38. FINDINGS: Image quality: Excellent. Alignment and Curvature: There is normal bony alignment. Bone Marrow: Marrow demonstrates normal overall signal. Spinal Cord: Visualized spinal cord has normal size and signal. No cerebellar tonsillar herniation. Paraspinous Soft Tissues: No paravertebral masses. Prevertebral soft tissues are normal in thickness. Cervical spine postoperative change is seen, with anterior fixation hardware seen C3 through C5. C2-C3: The disc height is well-preserved. Loss of disc signal is seen at this level. Moderate disc osteophyte complex is seen, which is eccentric to the left. There is hcie-uu-xtnexvyv right-sided and prominent left-sided facet hypertrophy. There is moderate to severe left-sided and no right-sided neural foraminal narrowing. Mild central canal narrowing is seen. These imaging findings have progressed compared to the prior study. C3-C4: Postoperative change is seen. A mild degree of generalized disc osteophyte complex is seen. Moderate facet joint hypertrophy is seen. There is mild bilateral neural foraminal narrowing seen, right worse than left. No significant central canal narrowing is seen. When comparison is made with the prior images, these findings are similar. C4-C5: Sfhy-zm-lukzsgsa disc osteophyte complex is seen, which is eccentric to the left. Mild to moderate facet hypertrophy is seen. There is at least moderate left-sided and mild right-sided neural foraminal narrowing. Mild to moderate central canal narrowing is seen at this level. When comparison is made with the prior images, these findings are similar. C5-C6: Vertebral body fusion is seen at this level. Mild to moderate disc osteophyte complex is seen. Mild to moderate facet hypertrophy is seen. No significant neural foraminal or central canal narrowing can be seen. Stable from the prior study. C6-C7: Vertebral body fusion can be seen at this level. A mild degree of generalized disc osteophyte complex is seen. Mild to moderate facet hypertrophy is seen. Mild bilateral neural foraminal narrowing is seen. No central canal narrowing is seen. When comparison is made with the prior images, these findings are similar. C7-T1: The disc height is well-preserved. Loss of disc signal is seen at this level. A mild degree of generalized disc osteophyte complex is seen. Mild to moderate facet hypertrophy is seen. There is moderate left-sided and minimal right-sided neural foraminal narrowing. No central canal narrowing is seen. When comparison is made with the prior images, these findings are similar. IMPRESSION: Multiple levels of degenerative change are seen, which do not appear progressed compared to 2020. Postoperative fusion changes are seen. Dictated by: Cole Clemens M.D. on 06/23/2023 at 17:48 Approved by: Cole Clemens M.D. on 06/23/2023 at 17:54
== END ==
PROVIDERS: PCP Family Medicine; Referring Provider Physical Medicine & Rehabilitation; Visit Provider Physical Medicine & Rehabilitation
DX: R29.898 Other symptoms and signs involving the musculoskeletal system (principal); M47.22 Other spondylosis with radiculopathy, cervical region; Z98.1 Arthrodesis status
CPT/HCPCS: 72141

== ENCOUNTER 2023-07-21 08:55 | Outpatient (CLI) | payer MEDICARE, SELFPAY ==
[2023-07-21] VITALS (8 sets, daily range): BP systolic 122–167; BP diastolic 65–77; PULSE 58–74; RESP 15–20; TEMP 36.2; O2SAT 92–95
--- NOTE | 2023-07-21 08:56 | DI.RAD.S_ITS ---
PROCEDURE: PAIN C/T INTERLAMINAR INJECT INDICATIONS: SPINAL STENOSIS COMPARISON: [facility], , PAIN C/T INTERLAMINAR INJECT, 08/21/2020, 10:26. FINDINGS: Fluoroscopic spot filming was performed to verify placement of a spinal needle at the C7-T1 level, as labeled on the films. Appropriate location of the needle tip was confirmed by injection of iodinated contrast. IMPRESSION: Intraprocedural examination within normal limits. Dictated by: Cole Clemens M.D. on 07/21/2023 at 18:22 Approved by: Cole Clemens M.D. on 07/21/2023 at 18:23
[2023-07-21] MEDS: MIDAZOLAM 2 MG/2 ML VIAL IV (10:26)
[2023-07-21] MEDS: fentaNYL 100 MCG/2 ML INJ 50 MCG IV (10:33)
[2023-07-21] MEDS: BUPIVACAINE 0.25% (PF) VIAL 2 ML INJ (10:36)
[2023-07-21] MEDS: DEXAMETHASONE 10 MG/ML VIAL 20 MG INJ (10:37)
[2023-07-21] MEDS: iopamidoL 15 ML VIAL 3 ML INJ (10:38)
--- NOTE | 2023-07-21 10:48 | PM.PROC.IR.1 ---
Date/Time/Diagnoses Date of procedure: 07/21/23 Time of procedure: 10:48 Pre-procedure diagnosis: 1. CERVICAL STENOSIS, 2. CERVICAL HNP WITH UPPER EXTREMITY RADICULAR FEATURES Procedure Notes Procedure: FLUORSCOPICALLY GUIDED CONTRAST CONTROLLED INTERLAMINAR EPIDURAL STEROID INJECTION - C7/T1 TL OSEAS Indications: Jyoti is referred by Dr. Alcantara for treatment of Cervical Stenosis. Physician: Alfie Tarango Total Fluoroscopy time (seconds): 33 Total sedation minutes: 15 Complications: none Procedure in detail & Post-procedure care: DESCRIPTION OF PROCEDURE Following review of allergy and review of potential side effects and complications, including, but not necessarily limited to, infection, allergic reaction, local tissue breakdown, temporary as well as permanent nerve injury, stroke, paralysis, and possible , the patient indicated that patient understood and agreed to proceed. An informed consent document was signed by the patient, witnessed by a nurse, and placed in the patient's chart. Additionally, other treatment options including modalities, medications, and physical therapy were reviewed with the patient. After review of previous anaesthesic history and IV conscious sedation the patient was deemed safe to proceed with todays procedure with IV conscious sedation as ASA class II designation. Safety time-out was performed to confirm patient ID, procedure to be performed and site of procedure. IV sedation was accomplished with a combination of 2mg of Versed and 50mcg of Fentanyl administered by the RN after DO order, titrated to patient comfort during the course of the procedure while the patient remained responsive to all verbal commands. In the prone position, following sterile prep and drape of the cervical region, the C7/T1 translaminar space was identified fluoroscopically. The skin was anesthetized via a 25-gauge 1.5-inch needle with 1% lidocaine solution. At this point, a 25-gauge, 2.5-inch short bevel spinal needle was atraumatically introduced and advanced under fluoroscopic guidance into epidural space at the C7/T1 translaminar space. Depth was confirmed on lateral view. Radiological data, including multiple fluoroscopic views of the cervical spine, reveal a spinal needle at the C7/T1 translaminar space. Lateral views then show placement of the needle in the epidural space. Subsequent views show contrast material flowing superiorly and inferiorly in the epidural space. DSA fluoroscopy with live contrast injection, once again, confirmed no vascular or intrathecal uptake. At this point, using loss of resistance technique with saline and air, the epidural space was entered. Following negative aspiration, injection of approximately 1.5 cc of Isovue-200 with live fluoroscopy in the AP view confirmed epidural flow in the epidural space without vascular or intrathecal uptake observed. Subsequently, a test dose of 1 cc of 1% lidocaine solution was injected and patient was observed for two minutes without signs or symptoms of complications, including abdominal pain, shortness of breath, bilateral upper or lower extremity weakness, nausea and vomiting, prior to steroid injection. At this point, 2cc or 20mg of dexamethasone was then injected without incident. The patient tolerated the procedure well without signs or symptoms of complications prior to transfer to the recovery area for further monitoring The patient was then transferred to the recovery area where they were observed for an appropriate period of time after the injection. The patient reported a VAS score of 6 prior to the procedure and a post-procedure VAS of 0 POST OP INSTRUCTIONS The patient was provided a Pain Log to continue to record the patient's response to the target-specific procedure prior to the patient's follow-up visit with the referring physician. Additionally, specific post-injection care instructions and a contact number to our office were provided if concerns arise regarding possible complications associated with the procedure are suspected.
== END 2023-07-21 11:20 | disposition home or self-care (01) ==
LOC: RAD 08:56
PROVIDERS: PCP Family Medicine; Referring Provider Physical Medicine & Rehabilitation; Visit Provider Physical Medicine & Rehabilitation
DX: M54.12 Radiculopathy, cervical region (principal); Z98.1 Arthrodesis status; M48.02 Spinal stenosis, cervical region
CPT/HCPCS: 62321; 99152; J1100; J2250; J3010; J3490

== ENCOUNTER → 2024-01-13 13:49 | Outpatient (CLI) | payer MEDICARE, SELFPAY ==
--- NOTE | 2024-01-13 13:52 | DI.CT.S_ITS ---
PROCEDURE: CT CERVICAL SPINE WO CON INDICATIONS: Radiculopathy, cervical region TECHNIQUE: Noncontrast 3 mm thick sections acquired from the skull base to the T4 level. Sagittal and coronal reformats were then constructed. For radiation dose reduction, the following was used: automated exposure control, adjustment of mA and/or kV according to patient size. COMPARISON: [facility], CR, XR CERVICAL SPINE 2V OR 3V, 01/19/2023, 13:48. [facility], MR, MR CERVICAL SPINE WO CON, 06/23/2023, 13:17. FINDINGS: Image quality: Diagnostic. Beam hardening artifacts from surgical hardware are seen. Bones: Patient is status post anterior fusion at C3 through C5 levels with surgical hardware in place. No gross hardware loosening or failure is seen. There is partial bony union at C3-4 and C4-5 levels. Partial bony union at C5-6 and C6-7 levels are also seen. No acute fracture or dislocation. C2-3: Bilateral facet arthrosis is seen. No significant central canal stenosis. Nrty-ow-ettjatwd left-sided neural foraminal narrowing is noted. C3-4: No significant disc bulge, canal stenosis or neural foraminal narrowing. C4-5: Left paracentral disc osteophyte complex formation with bilateral facet hypertrophic changes causing ukjy-ov-mpqhdoyv left-sided central canal stenosis and ktex-kc-tcmdwviz left-sided neural foraminal narrowing. C5-6: No significant disc bulge, canal stenosis or neural foraminal narrowing. Bilateral facet hypertrophic changes are seen. C6-7: No significant central canal stenosis of bilateral neural foraminal narrowing. C7-T1: Unremarkable. Soft tissues: Prevertebral soft tissues are normal in thickness. No paravertebral hematomas. No apical pneumothoraces. IMPRESSION: 1. Stable post anterior fusion changes at C3 through C5 levels. No gross hardware loosening or failure. Stable cervical spine alignment. No acute fracture or dislocation. Near complete bony fusion at C5-6 and C6-7 levels. 2. Bilateral facet hypertrophic changes throughout cervical spine. Left paracentral disc osteophyte complex formation at C4-5 level causing gtcp-zi-zudmakgb central canal stenosis and left-sided neural foraminal narrowing. Dictated by: Toney Cameron M.D. on 01/13/2024 at 19:46 Approved by: Toney Cameron M.D. on 01/13/2024 at 19:53
== END ==
PROVIDERS: PCP Family Medicine; Referring Provider Neurological Surgery; Visit Provider Neurological Surgery
DX: M47.22 Other spondylosis with radiculopathy, cervical region (principal); M48.02 Spinal stenosis, cervical region; Z98.1 Arthrodesis status
CPT/HCPCS: 72125

== ENCOUNTER → 2024-02-03 15:20 | Outpatient (CLI) | payer MEDICARE, SELFPAY ==
--- NOTE | 2024-02-03 15:25 | DI.RAD.S_ITS ---
PROCEDURE: XR LUMBAR SPINE 2-3V INDICATIONS: Low back pain TECHNIQUE: 3 views of the lumbar spine were acquired. COMPARISON: None. FINDINGS: Mild dextro curvature, centered at the thoracolumbar junction. Mild retrolisthesis of L2 on L3, and L3 on L4. Vertebral body height of the lumbar spine are well maintained. Multilevel degenerative changes in lumbar spine, most pronounced and severe at the thoracolumbar junction. Moderate lower lumbar facet arthropathy. IMPRESSION: Degenerative changes as described above. Dictated by: Kadie Gonzales M.D. on 02/03/2024 at 17:39 Approved by: Kadie Gonzales M.D. on 02/03/2024 at 17:41
== END ==
LOC: RAD 15:25
PROVIDERS: PCP Family Medicine; Referring Provider Family Medicine; Visit Provider Family Medicine
DX: M47.815 Spondylosis without myelopathy or radiculopathy, thoracolumbar region (principal); M47.816 Spondylosis without myelopathy or radiculopathy, lumbar region; M54.50 Low back pain, unspecified; Z98.1 Arthrodesis status
CPT/HCPCS: 72100

== ENCOUNTER → 2024-07-26 11:32 | Outpatient (CLI) | payer MEDICARE, SELFPAY ==
[2024-07-26 12:47] LABS: Add Manual Diff / Slide Review NO; Basophils Absolute Auto 100 /uL (0-100); Basophils Percent Auto 0.8 % (0-2); Eosinophils Absolute Auto 200 /uL (0-450); Eosinophils Percent Auto 2.9 % (2-4); Hematocrit 42.9 % (36-46); Hemoglobin 14.1 g/dL (12.0-16.0); Lymphocytes Absolute Auto 1900 /uL (1100-4500); Lymphocytes Percent Auto 22.9 % (25-40); Mean Corpuscular HGB Conc 32.9 % (30-36); Mean Corpuscular Hemoglobin 29.7 PG (26-34); Mean Corpuscular Volume 90.2 fL (80-100); Monocytes Absolute Auto 1000 /uL (0-900); Monocytes Percent Auto 12.8 % (3-14); Neutrophils Absolute Auto 4900 /uL (1500-7000); Neutrophils Percent Auto 60.6 % (50-75); Platelet Count 307 X10^3/uL (150-400); Red Blood Cell Count 4.76 X10^6/uL (4.0-5.2); Red Cell Distribution Width 14.9 % (11.6-14.8); White Blood Cell Count 8.1 X10^3/uL (4.5-11.0)
[2024-07-26 13:09] LABS: Alanine Aminotransferase 34 IU/L (<35); Albumin 4.1 g/dL (3.5-5.0); Albumin Globulin Ratio 1.4 (1.0-2.8); Alkaline Phosphatase 131 U/L (38-126); Aspartate Aminotransferase 31 IU/L (14-36); BUN Creatinine Ratio 20.3 (6-22); Bilirubin Total 0.5 mg/dL (0.2-1.3); Blood Urea Nitrogen 15 mg/dL (7-17); Calcium 9.8 mg/dL (8.4-10.2); Carbon Dioxide 32 mmol/L (22-32); Chloride 102 mmol/L (98-107); Cholesterol 164 mg/dL (140-199); Estimated Glomerular Filt Rate > 60 mL/min (>60); Globulin 2.9 g/dL (1.7-4.1); Glucose 101 mg/dL (80-110); HDL Cholesterol 38 mg/dL (40-60); HEMOLYSIS < 15 (0-50); LDL Cholesterol Calculated 111 mg/dL (<100); Potassium 4.5 mmol/L (3.4-5.1); Sodium 141 mmol/L (137-145); Triglycerides 75 mg/dL (35-150)
[2024-07-26 13:38] LABS: TSH w/ Reflex to FT4 2.48 uIU/mL (0.47-4.68)
[2024-07-26 15:32] LABS: UR Morphine/Opiate cutoff 300 Positive (Negative); Ur Creatinine Normal (Normal); Ur Specific Gravity Normal (Normal); Urine Amphetamines Negative (Negative); Urine Barbiturates Negative (Negative); Urine Benzodiazepines Negative (Negative); Urine Cocaine Negative (Negative); Urine MDMA Negative (Negative); Urine Methadone Negative (Negative); Urine Methamphetamines Negative (Negative); Urine Oxycodone Positive (Negative); Urine Phencyclidine Negative (Negative); Urine Tetrahydrocannabinol Positive (Negative); Urine Tricyclic Antidepressant Negative (Negative); Urine pH Normal (Normal)
== END ==
PROVIDERS: PCP Family Medicine; Referring Provider Family Medicine; Visit Provider Family Medicine
DX: I10 Essential (primary) hypertension (principal); G89.4 Chronic pain syndrome; E78.2 Mixed hyperlipidemia; E03.9 Hypothyroidism, unspecified
CPT/HCPCS: 80053; 80061; 80305; 84443; 85025

== ENCOUNTER → 2025-01-10 14:06 | Outpatient (CLI) | payer MEDICARE, SELFPAY ==
[2025-01-10 14:35] LABS: Add Manual Diff / Slide Review NO; Basophils Absolute Auto 100 /uL (0-100); Basophils Percent Auto 0.8 % (0-2); Eosinophils Absolute Auto 200 /uL (0-450); Eosinophils Percent Auto 2.7 % (2-4); Hematocrit 43.8 % (36-46); Hemoglobin 14.4 g/dL (12.0-16.0); Lymphocytes Absolute Auto 1300 /uL (1100-4500); Mean Corpuscular HGB Conc 32.9 % (30-36); Mean Corpuscular Volume 91.3 fL (80-100); Monocytes Absolute Auto 800 /uL (0-900); Monocytes Percent Auto 10.3 % (3-14); Neutrophils Absolute Auto 5800 /uL (1500-7000); Neutrophils Percent Auto 70.2 % (50-75); Platelet Count 323 X10^3/uL (150-400); Red Blood Cell Count 4.79 X10^6/uL (4.0-5.2); Red Cell Distribution Width 14.6 % (11.6-14.8); White Blood Cell Count 8.2 X10^3/uL (4.5-11.0)
[2025-01-10 15:12] LABS: Uric Acid 5.5 mg/dL (2.5-6.2)
[2025-01-10 15:15] LABS: Alanine Aminotransferase 37 IU/L (<35); Albumin 4.5 g/dL (3.5-5.0); Albumin Globulin Ratio 1.2 (1.0-2.8); Alkaline Phosphatase 124 U/L (38-126); Aspartate Aminotransferase 38 IU/L (14-36); BUN Creatinine Ratio 22.5 (6-22); Bilirubin Total 0.6 mg/dL (0.2-1.3); Blood Urea Nitrogen 16 mg/dL (7-17); Calcium 9.5 mg/dL (8.4-10.2); Carbon Dioxide 29 mmol/L (22-32); Chloride 103 mmol/L (98-107); Estimated Glomerular Filt Rate > 60 mL/min (>60); Globulin 3.7 g/dL (1.7-4.1); Glucose 136 mg/dL (80-110); HEMOLYSIS < 15 (0-50); Potassium 4.2 mmol/L (3.4-5.1); Sodium 143 mmol/L (137-145); Total Protein 8.2 g/dL (6.3-8.2)
[2025-01-10 15:18] LABS: Rheumatoid Factor < 8.6 IU/mL (<12.0)
[2025-01-10 15:29] LABS: Free T4, Direct Thyroxine 1.22 ng/dL (0.78-2.19)
[2025-01-10 16:14] LABS: Erythrocyte Sedimentation Rate 25 MM/HR (0-20)
[2025-01-12 04:36] LABS: CRP, High Sensitivity 7.96 mg/L (0.00-3.00)
[2025-01-12 17:36] LABS: SS A Ro Sjogrens Antibody < 0.2 AI (0.0-0.9); SS B La Sjogrens Antibody < 0.2 AI (0.0-0.9)
[2025-01-15 12:11] LABS: ANA Screen, IFA Positive (.)
== END ==
PROVIDERS: PCP Family Medicine; Referring Provider Ophthalmology; Visit Provider Ophthalmology
DX: E03.8 Other specified hypothyroidism (principal); I10 Essential (primary) hypertension; M35.00 Sjogren syndrome, unspecified; E03.9 Hypothyroidism, unspecified; F33.41 Major depressive disorder, recurrent, in partial remission; F41.1 Generalized anxiety disorder
CPT/HCPCS: 36415; 80053; 84439; 84443; 84550; 85025; 85651; 86038; 86140; 86235; 86430; 99214

== ENCOUNTER → 2025-02-01 15:36 | Outpatient (CLI) | payer MEDICARE, SELFPAY ==
--- NOTE | 2025-02-01 15:38 | DI.RAD.S_ITS ---
PROCEDURE: XR LUMBAR SPINE 2-3V INDICATIONS: low back pain, chronic back pain TECHNIQUE: 3 views of the lumbar spine were acquired. COMPARISON: [facility], CR, XR LUMBAR SPINE 2-3V, 02/03/2024, 15:31. FINDINGS: Lumbar spine curvature and alignment: Slight rightward curve lower thoracic upper lumbar spine appreciated. Bones: Minimal chronic wedge compression fractures of the T11 through L2 vertebral bodies is unchanged from exam 1 year prior Disc spaces: Moderate degenerative disc disease T11-T12 through L2-3 mild L3-4 degenerative disc disease. There is moderate L4-5 and L5-S1 degenerative facet disease Soft tissues: A 3 mm calcification overlies the inferior right kidney and is likely a nonobstructing stone IMPRESSION: Degeneration-slight progression from comparison exam 1 year ago Mild chronic compression fractures of the lower thoracic spine L1-L2 stable. Suspect osteoporosis. Consider DEXA scan. If osteoporotic, patient may benefit from medical therapy for future fracture prevention 3 mm calcification overlying the inferior right kidney likely a nonobstructing stone Dictated by: Reyes Garza M.D. on 02/04/2025 at 9:16 Approved by: Reyes Garza M.D. on 02/04/2025 at 9:18
[2025-02-01 16:48] LABS: Alanine Aminotransferase 30 IU/L (<35); Albumin 4.4 g/dL (3.5-5.0); Albumin Globulin Ratio 1.5 (1.0-2.8); Alkaline Phosphatase 125 U/L (38-126); Aspartate Aminotransferase 30 IU/L (14-36); BUN Creatinine Ratio 26.7 (6-22); Bilirubin Total 0.5 mg/dL (0.2-1.3); Blood Urea Nitrogen 23 mg/dL (7-17); C-Reactive Protein Quant 1.3 mg/dL (<1.0); Calcium 9.3 mg/dL (8.4-10.2); Carbon Dioxide 28 mmol/L (22-32); Chloride 104 mmol/L (98-107); Estimated Glomerular Filt Rate > 60 mL/min (>60); Globulin 2.9 g/dL (1.7-4.1); Glucose 102 mg/dL (80-110); HEMOLYSIS < 15 (0-50); Sodium 142 mmol/L (137-145); Total Protein 7.3 g/dL (6.3-8.2)
[2025-02-01 16:50] LABS: Erythrocyte Sedimentation Rate 18 MM/HR (0-20)
[2025-02-01 16:51] LABS: INR 1.2 (0.9-1.3); Prothrombin Time 13.2 SECONDS (9.4-12.5)
[2025-02-01 17:02] LABS: Hemoglobin A1C% w Est Avg Glu 5.2 % (4.0-6.0)
[2025-02-04 22:07] LABS: CCP Antibodies IgG/IgA 8 units (0-19)
[2025-02-08 20:07] LABS: HLA B27 Negative (.)
== END ==
PROVIDERS: PCP Family Medicine; Referring Provider Family Medicine; Visit Provider Family Medicine
DX: M54.50 Low back pain, unspecified (principal); E11.9 Type 2 diabetes mellitus without complications; L08.9 Local infection of the skin and subcutaneous tissue, unspecified; L30.9 Dermatitis, unspecified; M43.07 Spondylolysis, lumbosacral region; F41.1 Generalized anxiety disorder; I10 Essential (primary) hypertension; E03.9 Hypothyroidism, unspecified; M48.56XA Collapsed vertebra, not elsewhere classified, lumbar region, initial encounter for fracture; N28.89 Other specified disorders of kidney and ureter
CPT/HCPCS: 36415; 72100; 80053; 81374; 83036; 85610; 85651; 86140; 86200

== ENCOUNTER → 2025-02-14 14:21 | Outpatient (CLI) | payer MEDICARE, SELFPAY ==
--- NOTE | 2025-02-14 14:22 | DI.RAD.S_ITS ---
PROCEDURE: XR DEXA AXIAL SKELETON INDICATIONS: menopausal, recent fracture COMPARISON: [facility], , DEXA AXIAL SKELETON, 02/03/2017, 11:26. FINDINGS: Lumbar Spine (L2-L4): Bone mineral density 1.088 g/cm2, T score 0.1, compared to 0.2,. Left Femoral Neck: Bone mineral density 0.648 g/cm2, T score -1.8 compared to -1.0. Left Hip: Bone mineral density 0.811 g/cm2, T score -1.1 compared to -0.8,. Fracture Risk Calculation (when applicable): 10-year fracture risk of a major osteoporotic fracture 11 percent and of a hip fracture 1.4 percent. This is compared to 6.5 % and 0.4%. (T score greater or equal to -1.0 to: NORMAL) (T score from -1.1 to -2.4: OSTEOPENIA) (T score less than or equal to -2.5: OSTEOPOROSIS) IMPRESSION: Osteopenia progressive most notable in the left femoral neck. Follow-up guidelines as follows: Osteoporosis: Consider a repeat DEXA and Vertebral Fracture Assessment (VFA) exam in 2 years or sooner if medically necessary, to reassess this patient's status. Osteopenia: Consider a repeat DEXA in 2-3 years to reassess this patient's status, or if there is a new clinical indication. Normal: Consider a repeat DEXA in 5 years or sooner, or if there is a new clinical indication. All treatment decisions require clinical judgment and consideration of individual patient factors, including patient preferences, comorbidities, previous drug use, risk factors not captured in the FRAX model (e.g., frailty, falls, vitamin D deficiency, increased bone turnover, interval significant decline in bone density ) and possible under- or over-estimation of fracture risk by FRAX. In addition, the NOF Guide recommends that FDA-approved medical therapies be considered in postmenopausal women and men age >= 50 years with a: * Hip or vertebral (clinical or morphometric) fracture * T-score of <=-2.5 at the spine or hip * Ten-year fracture probability by FRAX of >= 3% for hip fracture or >=20% for major osteoporotic fracture. Dictated by: Fatmata Fox M.D. on 02/15/2025 at 11:52 Approved by: Fatmata Fox M.D. on 02/15/2025 at 11:55
== END ==
PROVIDERS: PCP Family Medicine; Referring Provider Family Medicine; Visit Provider Family Medicine
DX: M85.852 Other specified disorders of bone density and structure, left thigh (principal); Z78.0 Asymptomatic menopausal state
CPT/HCPCS: 77080

== ENCOUNTER → 2025-04-02 13:59 | Outpatient (CLI) | payer MEDICARE, SELFPAY ==
--- NOTE | 2025-04-02 14:00 | DI.MG.S_ITS ---
MM screening mammo BI: 04/02/2025. BI-RADS: 1 CLINICAL: 65-year old female for bilateral screening mammogram. Tyrer-Cuzick lifetime risk of 6.3%. Current reported family history of breast cancer: paternal grandmother and mother. The patient had a prior left breast biopsy. PRIOR EXAMS 01/19/2023, 09/17/2021, 04/08/2020, 03/06/2019, 02/10/2018, 02/03/2017, 02/03/2016. MAMMOGRAPHY TECHNIQUE: 2D and 3D (tomosynthesis) digital mammographic views obtained, with additional images as needed for full coverage. Current study was also evaluated with a Computer Aided Detection (CAD) system. DENSITY A. The breasts are almost entirely fatty. MAMMOGRAPHY FINDINGS Bilateral: No suspicious mass, asymmetry, microcalcification, or other abnormality seen. No significant change from comparison. IMPRESSION: * No evidence of malignancy. RECOMMENDATIONS Bilateral * Annual screening mammography. OVERALL ASSESSMENT CATEGORY BI-RADS-1: Negative. The [employer] recommends annual screening mammography beginning at age 40 for women with average risk of breast cancer. ELECTRONICALLY SIGNED: Riri King M.D. on 04/05/2025 at 06:48:44 PM PT Interpreting Station ID: [id number]
== END ==
PROVIDERS: PCP Family Medicine; Referring Provider Family Medicine; Visit Provider Family Medicine
DX: Z12.31 Encounter for screening mammogram for malignant neoplasm of breast (principal); R92.313 Mammographic fatty tissue density, bilateral breasts; Z80.3 Family history of malignant neoplasm of breast
CPT/HCPCS: 77063; 77067

== ENCOUNTER → 2025-07-31 12:32 | Outpatient (CLI) | payer MEDICARE, SELFPAY ==
--- NOTE | 2025-07-31 12:34 | DI.MRI.S_ITS ---
PROCEDURE: MR LUMBAR SPINE WO CON INDICATIONS: Lumbar Stenosis with hx of fx's TECHNIQUE: Noncontrast sagittal T1 spin echo and T2 fast echo, sagittal STIR, and T2 fast spin echo through the lumbar spine. In cases with scoliosis, additional coronal T2 fast spin echo may be performed. COMPARISON: [facility], CR, XR LUMBAR SPINE 2-3V, 02/01/2025, 15:56. FINDINGS: Image quality: Excellent Mild dextrocurvature at the thoracolumbar junction. Multiple small Schmorl's node in the lumbar spine. Vertebral body height of the lumbar spine is well maintained. There is suggestion mild superior endplate fragility fracture at T10, with marrow edema, partially visualized . There is marked fibrovascular end plate change at L2-3, with subjacent soft tissue edema, favoring degenerative. Multilevel disc bulge and disc desiccation. Conus terminates at the level of L1-2, and is unremarkable. Right neural foraminal stenosis the: Mild at L1-2, L2-3, L3-4, moderate at L4-5. Left neural from stenosis: Severe at L2-3. Mild at L4-5 and L5-S1. Axial images: T11-T12: Mild disc bulge. Mild bilateral facet arthropathy. No central canal stenosis. T12-L1: Mild bilateral facet arthropathy. Disc bulge. No central canal stenosis. L1-2: Disc bulge. Mild bilateral facet arthropathy. Mild central canal stenosis. L2-3: Moderate bilateral facet arthropathy. Disc bulge. Epidural lipomatosis. Moderate to severe central canal stenosis. L3-4: Mild bilateral facet arthropathy. Disc bulge. No central canal stenosis. L4-5: Moderate bilateral facet arthropathy. Disc bulge. Mild central canal stenosis. L5-S1: Moderate bilateral facet arthropathy. No central canal stenosis. Visualized sacrum is intact. Small l bilateral renal cysts. IMPRESSION: 1. Suggestion of mild superior endplate fragility fracture of T10 with marrow edema, partially visualized. Further evaluation with thoracic spine MRI can be considered. 2. Multilevel degenerative changes, most pronounced at L2-3, where there is moderate to severe central canal stenosis and mild right and severe left neural foraminal stenosis. Associated marked fibrovascular end plate change and subjacent soft tissue edema, favoring degenerative. Dictated by: Kadie Gonzales M.D. on 07/31/2025 at 17:14 Approved by: Kadie Gonzales M.D. on 07/31/2025 at 17:25
== END ==
LOC: MRI 12:33
PROVIDERS: PCP Family Medicine; Referring Provider Family Medicine; Visit Provider Physical Medicine & Rehabilitation
DX: M48.062 Spinal stenosis, lumbar region with neurogenic claudication (principal); Z98.1 Arthrodesis status; M48.061 Spinal stenosis, lumbar region without neurogenic claudication; R60.0 Localized edema; M51.34 Other intervertebral disc degeneration, thoracic region; M47.814 Spondylosis without myelopathy or radiculopathy, thoracic region; M47.815 Spondylosis without myelopathy or radiculopathy, thoracolumbar region; M51.35 Other intervertebral disc degeneration, thoracolumbar region; M47.816 Spondylosis without myelopathy or radiculopathy, lumbar region; M51.369 Other intervertebral disc degeneration, lumbar region without mention of lumbar back pain or lower extremity pain; E88.2 Lipomatosis, not elsewhere classified; M47.817 Spondylosis without myelopathy or radiculopathy, lumbosacral region
CPT/HCPCS: 72148

== ENCOUNTER 2025-10-03 13:18 | Outpatient (CLI) | payer MEDICARE, SELFPAY ==
[2025-10-03 14:27] VITALS: BP 177/95; PULSE 76; RESP 16; O2SAT 98
[2025-10-03] MEDS: MIDAZOLAM 2 MG/2 ML VIAL IV (14:32)
[2025-10-03 14:35] VITALS: BP 137/74; PULSE 80; RESP 16; O2SAT 96
[2025-10-03] MEDS: BETAMETHASONE 30 MG/5 ML MDV 12 MG INJ (14:36)
[2025-10-03 14:40] VITALS: BP 118/67; PULSE 75; RESP 18; O2SAT 95
--- NOTE | 2025-10-03 14:49 | PM.PROC.IR.1 ---
Date/Time/Diagnoses Date of procedure: 10/03/25 Time of procedure: 14:49 Pre-procedure diagnosis: Sacroiliac Joint Pain/DJD Post-procedure diagnosis: same Procedure Notes Procedure: Fluoroscopically guided contrast controlled left sacroiliac joint injection Indications: Jyoti is referred by Dr. Alcantara for treatment of left sacroiliac joint DJD Physician: Alfie Tarango Total Fluoroscopy time (seconds): 9 Total sedation minutes: 11 Complications: none Procedure in detail & Post-procedure care: DESCRIPTION OF PROCEDURE Fluoroscopic guided, contrast controlled left sacroiliac joint injection Following review of allergies and review of potential side effects and complications, including, but not necessarily limited to, infection, allergic reaction, local tissue breakdown, temporary as well as permanent nerve injury, paralysis, stroke and possible , the patient indicated that they understood and agreed to proceed. An informed consent was signed by the patient, witnessed by a nurse, and placed in the patient's chart. Additionally, other treatment options including modalities, medications, and physical therapy were reviewed with the patient. After review of previous anaesthesic history and IV conscious sedation the patient was deemed safe to proceed with today?s procedure with IV conscious sedation as ASA class II designation. Safety time-out was performed to confirm patient ID, procedure to be performed and site of procedure. IV sedation was accomplished with a combination of 2mg of Versed administered by the RN after DO order, titrated to patient comfort during the course of the procedure while the patient remained responsive to all verbal commands. In the prone position following sterile prep and drape of the pelvic region, the hyper lucency on in the inferior aspect of the left sacroiliac joint was identified fluoroscopically the skin was anesthetized be a 25 gauge 1 eventual with approximately 2cc of 1% lidocaine solution. At this point, a 22 gauge 3inch spinal needle was atraumatically introduced and advanced under fluoroscopic guidance into the inferior aspect of the left sacroiliac joint. Following negative aspiration, approximately 0.3cc of [id number]-[id number] was injected confirming intra-articular placement without vascular uptake. Radiographic data, including multiple fluoroscopic views of the pelvis, reveals a spinal needle in the left sacroiliac joint hyper lucent zone. Subsequent view show flow contrast tear superiorly and inferiorly within the joint capsule without vascular intrathecal uptake. At this point a total of 1cc or 0.5% Marcaine was combined with 2cc of 12mg of betamethasone was injected without incident. The patient tolerated the procedure well without signs or symptoms of complications prior to transfer to the recovery area for further monitoring. The patient was then transferred to the recovery area with a bur observed for an appropriate time after the injection. The patient reverted a vas score of 7 prior to the procedure and postprocedure vas of 1. POSTOP INSTRUCTIONS The patient was provided with a pain like to continue to record the patient's response to the target specific procedure prior to the patient's follow-up visit with the referring physician. Additionally, specific post injection care instructions and a contact number to our office were provided if concerns arise regarding the possible complications associated with procedure are suspected.
[2025-10-03 14:50] VITALS: BP 111/73; PULSE 79; RESP 17; O2SAT 93
[2025-10-03 14:55] VITALS: BP 111/73; PULSE 79; RESP 17; O2SAT 93
[2025-10-03 15:00] VITALS: BP 111/73; PULSE 78; RESP 20; O2SAT 91
== END 2025-10-03 15:16 | disposition home or self-care (01) ==
PROVIDERS: PCP Family Medicine; Referring Provider Physical Medicine & Rehabilitation; Visit Provider Physical Medicine & Rehabilitation
DX: M46.1 Sacroiliitis, not elsewhere classified (principal); M53.3 Sacrococcygeal disorders, not elsewhere classified
CPT/HCPCS: 27096; 99152; J0702; J2250